=== PATIENT | female | born 1990 | race Caucasian/White ===

== ENCOUNTER → 2018-02-05 | Outpatient (CLI) | payer BC ==
[2018-02-05 11:00] LABS: BASO % 0.4 % (0.0-1.0); EOS # 0.1 10^3/uL (0.0-0.50); EOS % 1.1 % (0.0-3.0); HEMATOCRIT 36.3 % (36.0-47.0); HEMOGLOBIN 12.4 g/dl (12.0-15.5); IMMATURE GRANULOCYTE % 0.7 % (0-3.0); LYMPH # 1.7 10^3/uL (1.5-6.5); LYMPH % 17.8 % (24.0-44.0); MEAN CORPUSCULAR HEMOGLOBIN 30.2 pg (27.0-33.0); MEAN CORPUSCULAR HGB CONC 34.2 g/dl (32.0-36.5); MEAN CORPUSCULAR VOLUME 88.3 fl (80.0-96.0); MONO # 0.6 10^3/uL (0.0-0.8); MONO % 6.5 % (0.0-5.0); NEUTROPHILS # 7.2 10^3/uL (1.8-7.7); NEUTROPHILS % 73.5 % (36.0-66.0); PLATELET COUNT, AUTOMATED 204 10^3/uL (150-450); RED BLOOD COUNT 4.11 10^6/uL (4.00-5.40); RED CELL DISTRIBUTION WIDTH 12.7 % (11.5-14.5); WHITE BLOOD COUNT 9.8 10^3/uL (4.0-10.0)
[2018-02-05 15:08] LABS: CHLAMYDIA DNA AMPLIFICATION NEGATIVE (NEGATIVE); GC DNA AMPLIFICATION NEGATIVE (NEGATIVE)
[2018-02-06 09:46] LABS: RUBELLA IgG QUALITATIVE IMMUNE (IMMUNE)
[2018-02-06 09:55] LABS: HBsAg Prenatal NEGATIVE (NEGATIVE)
[2018-02-06 10:14] LABS: HEPATITIS C VIRUS ABY INDEX 0.1 INDEX (<0.8)
[2018-02-06 10:15] LABS: HIV 1&2 SCREEN CENTAUR NEGATIVE (NEGATIVE)
== END ==
LOC: M LAB 10:19
DX: Z34.81 Encounter for supervision of other normal pregnancy, first trimester (principal); Z36.89 Encounter for other specified antenatal screening; Z3A.12 12 weeks gestation of pregnancy
CPT/HCPCS: 86762

== ENCOUNTER → 2018-02-12 | Outpatient (CLI) | payer BC | LOC: M SMT 12:05 | DX: Z34.81 Encounter for supervision of other normal pregnancy, first trimester (principal); Z36.89 Encounter for other specified antenatal screening | CPT/HCPCS: 36415 ==

== ENCOUNTER → 2018-02-12 | Outpatient (CLI) | payer BC | LOC: M RAD 07:28 | DX: Z34.81 Encounter for supervision of other normal pregnancy, first trimester (principal); Z36.89 Encounter for other specified antenatal screening; Z3A.13 13 weeks gestation of pregnancy | CPT/HCPCS: 76801 ==

== ENCOUNTER → 2018-04-02 | Outpatient (CLI) | payer BC | LOC: M RAD 07:23 | DX: O32.1XX0 Maternal care for breech presentation, not applicable or unspecified (principal); Z36.89 Encounter for other specified antenatal screening; Z3A.21 21 weeks gestation of pregnancy | CPT/HCPCS: 76811 ==

== ENCOUNTER → 2018-05-07 | Outpatient (CLI) | payer BC ==
[2018-05-07 17:31] LABS: HEMATOCRIT 31.6 % (36.0-47.0); HEMOGLOBIN 10.6 g/dl (12.0-15.5); MEAN CORPUSCULAR HEMOGLOBIN 31.3 pg (27.0-33.0); MEAN CORPUSCULAR HGB CONC 33.5 g/dl (32.0-36.5); MEAN CORPUSCULAR VOLUME 93.2 fl (80.0-96.0); PLATELET COUNT, AUTOMATED 195 10^3/uL (150-450); RED BLOOD COUNT 3.39 10^6/uL (4.00-5.40); RED CELL DISTRIBUTION WIDTH 13.7 % (11.5-14.5)
[2018-05-07 18:10] LABS: GLUCOSE CHALLENGE TEST 1 HOUR 84 MG/DL (LESS THAN 140)
== END ==
LOC: M SMT 13:32
DX: Z34.82 Encounter for supervision of other normal pregnancy, second trimester (principal)
CPT/HCPCS: 82950

== ENCOUNTER → 2018-06-04 | Outpatient (REF) | payer BC | LOC: M LAB REF 13:00 | DX: Z36.89 Encounter for other specified antenatal screening (principal) | CPT/HCPCS: 87086 ==

== ENCOUNTER → 2018-07-16 | Outpatient (REF) | payer BC ==
[~2018-07-16] MED LIST: COLA100C5 PO; IBUP80TA PO; OXYC1TAB23 PO; PERCOCET PO; PRENTAB9 PO
== END ==
LOC: M LAB REF 12:33
PROVIDERS: ATTEND Specialist
DX: Z34.83 Encounter for supervision of other normal pregnancy, third trimester (principal)

== ENCOUNTER 2018-08-16 22:07 | Inpatient (IN) | payer BC ==
[~2018-08-16] VITALS: Ht 160 cm; Wt 71.6 kg
[2018-08-16 23:20] LABS: HEMATOCRIT 36.2 % (36.0-47.0); HEMOGLOBIN 12.5 g/dl (12.0-15.5); MEAN CORPUSCULAR HEMOGLOBIN 31.6 pg (27.0-33.0); MEAN CORPUSCULAR HGB CONC 34.5 g/dl (32.0-36.5); MEAN CORPUSCULAR VOLUME 91.6 fl (80.0-96.0); PLATELET COUNT, AUTOMATED 154 10^3/uL (150-450); RED BLOOD COUNT 3.95 10^6/uL (4.00-5.40); WHITE BLOOD COUNT 13.1 10^3/uL (4.0-10.0)
[2018-08-16] MEDS ORDERED: miSOPROStol 50 MCG 1/2 TAB (S0191) As Ordered ONE (23:27)
[2018-08-16] MEDS: miSOPROStol 50 MCG 1/2 TAB (S0191) SL SCH (23:36)
[2018-08-17] VITALS (67 sets, daily range): BP systolic 94–162; BP diastolic 50–87
[2018-08-17] MEDS: miSOPROStol 50 MCG 1/2 TAB (S0191) SL SCH (04:50)
[2018-08-17] MEDS: FAMOTIDINE 20 MG TAB PO SCH (08:47)
[2018-08-17] MEDS ORDERED: OXYTOCIN DRIP 30 UNITS in APPROPRIATE DILUENT 1 EA IV SCH (09:00)
--- NOTE | 2018-08-17 09:09 | IPNPDOC ---
Obstetrical Progress Note Date of Service Aug 17, 2018 Subjective Patient reports she is feeling her contractions. Objective Vital Signs Date Time Temp Pulse Resp B/P (MAP) Pulse Ox O2 Delivery O2 Flow Rate FiO2 08/17/18 07:04 97.6 66 16 118/65 (82) Assessment Heart Rate (FHR): 130 Variability: Moderate Accelerations: Positive Decelerations: None Heart Rate Tracing: Category I Tocometer Contractions: Yes Frequency: regular, every 1-3 min. Sterile Vaginal Examination Dilation: None Effacement (%): other (thinning) Cervical Consistency: Medium Cervical Position: Anterior Postion/Presentation: Cephalic presentation Assessment and Plan Age: 28 : 1 Term: 0 Pre-term: 0 Abortions: 0 Livin EGA at Admission: 40.0 Status: Reassuring Group B Streptococcus: Positive Anticipate: Vaginal Delivery Additional Comments Will start IV Pitocin per order. ARLEEN EMERY CNM Aug 17, 2018 09:09
[2018-08-17] MEDS ORDERED: FENTANYL 2MCG/ML ROPIVACAINE 0.2% IN 0.9% NACL 100ML IVBAG As Ordered ONE (14:30)
[2018-08-17] MEDS ORDERED: ePHEDrine SULFATE 25 MG/5 ML(5MG/ML) SYRINGE As Ordered ONE (15:57)
[2018-08-17] MEDS ORDERED: NALOXONE INJ 0.4 MG/1 ML VIAL (J2310) IV PRN (16:15)
[2018-08-17] MEDS ORDERED: EPIDURAL COMMENT XX SCH (16:15)
[2018-08-17] MEDS ORDERED: ePHEDrine SULFATE 25 MG/5 ML(5MG/ML) SYRINGE IV PRN (16:15)
[2018-08-17] MEDS ORDERED: FENTANYL/ROPIVACAINE/NACL BAG 100 ML EPIDURAL SCH (16:15)
[2018-08-17] MEDS ORDERED: REFRIGERATOR IV KEYS XX PRN (16:15)
[2018-08-17] MEDS ORDERED: LR 1,000 ML IV ONE (16:15)
[2018-08-17] MEDS ORDERED: ONDANSETRON 4MG/2ML VIAL (J2405) IV PRN (16:15)
[2018-08-17] MEDS ORDERED: diphenhydrAMINE INJ 50MG/ML VIAL (J1200) IV PRN (16:15)
[2018-08-17] MEDS ORDERED: LACTATED RINGER'S 1000 ML IV PRN (16:15)
[2018-08-17] MEDS ORDERED: EPIDURAL/PCA KEYS XX PRN (16:15)
[2018-08-17] MEDS ORDERED: PENICILLIN G POTASSIUM IV 5 MU in D5W MINI-BAG PLUS 100 ML IV STA (16:40)
[2018-08-17] MEDS: PENICILLIN G POTASSIUM IV 2.5 MU in APPROPRIATE DILUENT 1 EA IV SCH (21:00)
[2018-08-18] VITALS (41 sets, daily range): BP systolic 113–164; BP diastolic 55–86
--- NOTE | 2018-08-18 01:15 | IPNPDOC ---
Obstetrical Progress Note Date of Service Aug 17, 2018 Subjective Done at 1630 Patient reports she is comfortable with her epidural. Objective Vital Signs Date Time Temp Pulse Resp B/P (MAP) Pulse Ox O2 Delivery O2 Flow Rate FiO2 08/17/18 18:50 90 101/69 (80) 08/17/18 18:36 18 08/17/18 17:59 98.2 Assessment Heart Rate (FHR): 130 Variability: Moderate Accelerations: Positive Decelerations: None Heart Rate Tracing: Category I Tocometer Contractions: Yes Frequency: regular Sterile Vaginal Examination Dilation: 1cm Effacement (%): 90% Cervical Consistency: Soft Cervical Position: Anterior Postion/Presentation: Cephalic presentation Assessment and Plan Status: Reassuring Group B Streptococcus: Positive Additional Comments Pitocin at 10 mu/min. Pepe bulb inserted with 50 cc of NS. Patient tolerated well. ARLEEN EMERY CNM Aug 18, 2018 01:15
--- NOTE | 2018-08-18 01:37 | IPNPDOC ---
Obstetrical Progress Note Date of Service Aug 18, 2018 Subjective Patient comfortable with her epidural. Objective VS: 135/70; 58 HR Assessment Heart Rate (FHR): 125 Accelerations: Positive Decelerations: None Heart Rate Tracing: Category I Tocometer Contractions: Yes Frequency: regular Sterile Vaginal Examination Dilation: 3 cm Effacement (%): 100% Station: -1 Postion/Presentation: Cephalic presentation Assessment and Plan Status: Reassuring Group B Streptococcus: Positive Anticipate: Vaginal Delivery Additional Comments Pitocin at 12 mu/min. Pepe bulb sitting in vagina and removed. AROM to a moderate amount of clear fluid. ARLEEN EMERY CNM Aug 18, 2018 01:36
[2018-08-18] MEDS: LR 1,000 ML IV SCH ×4 (02:05→16:39)
[2018-08-18] MEDS: PENICILLIN G POTASSIUM IV 2.5 MU in APPROPRIATE DILUENT 1 EA IV SCH ×4 (02:05→15:23)
--- NOTE | 2018-08-18 04:15 | HPE ---
DATE OF ADMISSION: 08/16/2018 HISTORY: 28-year-old, (G) 1, para (P) 0 female at 39-6/7 weeks gestation by 13-week ultrasound, estimated date of confinement (EDC) of 08/17/2018 presents for labor induction. The patient denies contractions or vaginal bleeding. COURSE: The patient initiated care at 10 weeks gestation on 02/05/2018. Her first trimester blood pressure was 106/64. Weight was 123 pounds. course was unremarkable. MEDICAL HISTORY: Cervical dysplasia. SURGICAL HISTORY: Loop electrosurgical excision procedure (LEEP) in 2008. ALLERGIES: PERTUSSIS VACCINE. SOCIAL HISTORY: Patient's partner is involved. She lives in [place]. 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 She denies cigarettes, alcohol, or drug use. FAMILY HISTORY: Noncontributory. PHYSICAL EXAMINATION: Blood pressure 124/74. Weight 161. She is no apparent distress. HEAD/NECK: Exam is normal. LUNGS: Clear. HEART: Regular rate and rhythm. ABDOMEN: Nontender. Gravid. heart sounds category 1. STERILE VAGINAL EXAM: Cervix is closed, 50%, posterior, soft, -2. Contractions: None. EXTREMITIES: Nontender. LABS: Blood type is O positive. Rubella immune. RPR nonreactive. Group B streptococcus (GBS) is positive on 07/16/2018. ASSESSMENT: 28-year-old, G1, P0 female at 39-6/7 weeks gestation by 13-week ultrasound presents for labor induction. PLAN: The patient is admitted on 08/16/2018. Risks of induction were discussed. The patient will receive penicillin for GBS prophylaxis when appropriate.
[2018-08-18] MEDS: FAMOTIDINE 20 MG TAB PO SCH (08:13)
--- NOTE | 2018-08-18 09:19 | NUR ---
Progress Note Pt comfortable with epidural. No heavy VB; minimal bloody show. LOF/clear. Has been undergoing cervical ripening/IOL. AROM (clear) after intracervical balloon was noted to be out around 0100 this AM. Normotensive, normal HR, afebrile SVE: 4-5cm, 80%, 0 station. +bloody show. EFM: currently Cat I (pt has had some brief periods of Cat II FHR tracing overnight/early this AM) IUPC: adequate MVU's, ctx's approx every 3-4min; pit at 4mU/min A/P: Early active phase of labor. Reassuring maternal and status. -Repeat SVE in 2-4 hours or sooner GERI Antonio DO
[2018-08-18] MEDS ORDERED: LIDOCAINE 2% W/EPIN INJ 20ML **PRES FREE As Ordered ONE (13:00)
[2018-08-18] MEDS ORDERED: ONDANSETRON 4MG/2ML VIAL (J2405) As Ordered ONE (13:00)
[2018-08-18] MEDS ORDERED: OXYTOCIN INJ 10 UNITS/ML VIAL (J2590) As Ordered ONE (13:01)
[2018-08-18] MEDS ORDERED: dexameTHASONE 4 MG/ML 1ML VIAL (J1100) As Ordered ONE (13:04)
--- NOTE | 2018-08-18 14:17 | NUR ---
Progress note Pt still comfortable with epidural. Denies feeling any rectovaginal pressure/urge to push VSS, normotensive, afebrile SVE: 5cm/80/0; minimal change EFM: predominantly Cat I; short periods of Cat II w/ mod bryant [place]: ctxs every 3-4min; pit at 10mU/min; adequate MVU's. A/P: Arrested active phase of labor. Reassuring maternal and status. Offered PLTCS. Pt requested allowing 2 more hours for cervical change/progression. -Repeat SVE in 2 hours or sooner PRN. Diana Antonio DO
--- NOTE | 2018-08-18 16:43 | NUR ---
Progress note Pt still comfortable with epidural. Continues to deny feeling any rectovaginal pressure/urge to push VSS, normotensive, afebrile SVE: 5cm/80/0; unchanged EFM: Cat I Section: ctxs every 3-4min; pit at 12mU/min; adequate MVU's. A/P: Arrested active phase of labor. Reassuring maternal and status. Discussed PLTCS recommendation, and she is in agreement. However, plan is to still continue Pitocin and recheck after I'm finished assisting another physician with a section. Diana Antonio DO
[2018-08-18] MEDS ORDERED: ACETAMINOPHEN 500 MG TAB PO PRN (16:45)
--- NOTE | 2018-08-18 18:12 | NUR ---
Progress Note No new complaints. Comfortable. VSS, normotensive, afebrile SVE: unchanged, 5cm/80%/0 EFM: Cat I [place]: ctxs every 3min; pit turned off A/P: Arrest of dilation. Reassuring maternal and status. -Pt agreed / consented to PLTCS -Preparations for the OR being made. Diana Antonio DO FACOG
[2018-08-18] MEDS ORDERED: AZITHROMYCIN INJ 500 MG, VIAL MATE ADAPTER 1 EACH in D5W 250 ML IV ONE (18:15)
[2018-08-18] MEDS ORDERED: BICITRA 30ML SOLN UDC PO ONE (18:15)
[2018-08-18] MEDS ORDERED: METOCLOPRAMIDE INJ 10MG/2ML VIAL (J2765) As Ordered ONE (19:27)
[2018-08-18] MEDS ORDERED: MORPHINE PRES-FREE INJ 10 MG/10 ML VIAL (J2274) As Ordered ONE (19:28)
[2018-08-18] MEDS ORDERED: NALOXONE INJ 0.4 MG/1 ML VIAL (J2310) IV PRN ×2 (19:30)
[2018-08-18] MEDS ORDERED: METOCLOPRAMIDE INJ 10MG/2ML VIAL (J2765) IV PRN (19:30)
[2018-08-18] MEDS ORDERED: diphenhydrAMINE INJ 50MG/ML VIAL (J1200) IV PRN (19:30)
[2018-08-18] MEDS ORDERED: ONDANSETRON 4MG/2ML VIAL (J2405) IV PRN ×3 (19:30→21:00)
[2018-08-18] MEDS ORDERED: NALBUPHINE HCL 10 MG/ML AMP (J2300) IV PRN ×2 (19:30→21:00)
[2018-08-18] MEDS ORDERED: PHENYLephrine HCL 500 MCG/5 ML (100MCG/ML) SYRINGE (J2370) As Ordered ONE (19:36)
[2018-08-18] MEDS ORDERED: MIDAZOLAM INJ 2 MG/2 ML VIAL (J2250) As Ordered ONE (19:50)
[2018-08-18] MEDS ORDERED: PROPOFOL 200 MG/20 ML VIAL As Ordered ONE (20:13)
[2018-08-18] MEDS ORDERED: OXYTOCIN DRIP 30 UNITS in APPROPRIATE DILUENT 1 EA IV SCH (20:22)
[2018-08-18] MEDS ORDERED: OXYTOCIN 30 UNITS IN 0.9% NaCl 500ML IV BAG (J2590) As Ordered ONE (20:29)
[2018-08-18] MEDS ORDERED: MEASLES,MUMPS,RUBELLA VACCINE INJ (MMR-II) (90707) SC SCH (20:30)
[2018-08-18] MEDS ORDERED: RHOGAM 300 MCG (1500 IU) INJ (J2790) IM SCH (20:30)
[2018-08-18] MEDS ORDERED: PERCOCET 5MG/325MG TAB PO PRN ×3 (20:30→21:00)
[2018-08-18] MEDS ORDERED: PROMETHAZINE 25 MG TAB PO PRN (20:30)
--- NOTE | 2018-08-18 20:31 | NUR ---
Operative Note Date of procedure: 08/18/2018 Procedure: Primary low-transverse section Anesthesia: Epidural Preoperative diagnosis: 40+ weeks gestation Arrest of dilation Postoperative diagnosis: Same as preoperative Indication: Arrested dilation Primary surgeon: Bill Antonio D.O., Mare Rosado. Patient Accounts Clerk: Theron Verduzco M.D. (essential role for surgical site exposure and assistance with delivery of the baby) Estimated blood loss: 700 ml IV fluids administered: 1700 ml crystalloid Drains: Pepe catheter. Urine output: 100 ml data: Apgars 8 and 9. Birthweight 3230 g, 7 lbs. 2 oz. Male. Preoperative/prophylactic antibiotics: Ancef 2 g IV (given within 30 minutes prior to surgical start time). Azithromycin 500 mg IV 1 Intraoperative findings: Occiput posterior presentation. Retroverted uterus. Normal uterine contour and normal bilateral adnexa/ovaries Specimen(s): None Procedure: The patient was counseled and consented on the risks, benefits, indications and alternatives of the procedure. Informed consent was obtained and placed in the c rosas. She was taken to the operating room with an IV running. She was placed on the operating table. Epidural anesthesia was administered without any difficulty and found to be adequate. She was placed in the dorsal supine position with a leftward tilt. Sequential compression devices were placed on the lower extremities. A Pepe catheter was placed under sterile conditions. She was sterilely prepped and draped. A surgical timeout was performed per protocol. Epidural anesthesia was again found to be adequate. Using the 10 blade a Pfannenstiel incision was performed. The 10 blade was used to dissect down to the level of the rectus sheath fascia. The rectus sheath fas bill was incised at the midline, and the fascial incision was extended with Finney scissors. Sumeet clamps were used to grasp the superior and inferior aspect of the fascial incision and the rectus muscle bellies were dissected off sharply and bluntly. The midline was identified and the rectus muscle bellies were manually . The peritoneum was identified and clamped with hemostats and elevated. The peritoneum was then incised with Metzenbaum scissors. Entry into the intraperitoneal cavity was achieved. The peritoneal opening was extended with manual stretch . There was good visualization of both the bladder and the lower uterine segment. The bladder retractor was placed. The vesicouterine peritoneum was dissected with Metzenbaum scissors and blunt dissection. Bladder retractor was repositioned. A low transverse uterine incision was made with a new 10 blade. The hysterotomy was extended with manual stretch. The amniotic sac was protruding and then artificially ruptured. Thin/light meconium stained amniotic fluid was noted. The baby's head delivered through the hysterotomy with ease. The remaind er of the body delivered with ease. The cord was doubly clamped and cut and the baby was handed off to awaiting care. See data above. The placenta was manually removed and noted to be fully intact. The uterus was exteriorized. The intrauterine cavity was cleared of all clot and debris with a laparotomy sponge. The hysterotomy was closed with 0 Vicryl in running, locked fashion. A second imbricating closure was performed over the initial layer closure using 0 Vicryl. The hysterotomy was noted to be hemostatic. The posterior cul-de-sac was irrigated and cleared of all clot and debris. The uterus was replaced back into the abdomen. The paracolic gutters were cleared of all clot and debris with damp laparotomy sponges. The hysterotomy is reinspected and noted to be hemostatic. Sponge, needle and instrument counts were correct. The peritoneum was closed with 3-0 Vicryl in running fashion. The rectus muscle bellies were reapproximated with 3-0 Vicryl with a series of interrupted sutures. The rectus muscle bellies were noted to be hemostatic. The fascia was closed with 0 Vicryl in running fashion. Sponge, needle and instrument counts were again correct. The subcutaneous layer was irrigated. Small subcutaneous bleeders were cauterized with Bovie. The subcutaneous layer was reapproximated with 3-0 Vicryl in running fashion. The skin was closed with 3-0 Monocryl in subcuticular fashion. A bandage was placed over the closed incision. The final sponge, instrument and needle count was correct. She tolerated the entire procedure very well. She was transferred to the PACU in good and stable condition. Dr. Bill Antonio D.O., F.A.Spencer.O.G
[2018-08-18] MEDS ORDERED: fentaNYL 100 MCG/2 ML INJECTION (J3010) IV PRN (21:00)
[2018-08-18] MEDS ORDERED: MEPERIDINE INJ 25 MG/ML VIAL (J2175) IV PRN (21:00)
[2018-08-18] MEDS ORDERED: HYDROMORPHONE HCL 0.5 MG/ 0.5 ML SYRINGE (J1170 PER 1) IV PRN (21:00)
[2018-08-18] MEDS: DOCUSATE SODIUM 100 MG CAP PO SCH (22:23)
[2018-08-19] VITALS (7 sets, daily range): BP systolic 96–142; BP diastolic 50–79
[2018-08-19] MEDS: KETOROLAC 30 MG/ML VIAL (J1885) IV SCH ×3 (02:56→14:44)
[2018-08-19] MEDS: LR 1,000 ML IV SCH ×3 (03:37→12:22)
[2018-08-19 06:51] LABS: HEMATOCRIT 31.2 % (36.0-47.0); HEMOGLOBIN 10.5 g/dl (12.0-15.5); MEAN CORPUSCULAR HEMOGLOBIN 31.3 pg (27.0-33.0); MEAN CORPUSCULAR HGB CONC 33.7 g/dl (32.0-36.5); MEAN CORPUSCULAR VOLUME 92.9 fl (80.0-96.0); PLATELET COUNT, AUTOMATED 127 10^3/uL (150-450); RED BLOOD COUNT 3.36 10^6/uL (4.00-5.40); WHITE BLOOD COUNT 22.1 10^3/uL (4.0-10.0)
--- NOTE | 2018-08-19 07:47 | NUR ---
Postoperative Day 1 Status post primary low transverse section, uncomplicated. Subjective Pain is well controlled. Lochia is decreasing and minimal. Voiding spontaneously. Tolerating a regular diet. Ambulating without any assistance. Denies any subjective fever, chills, nausea, vomiting, headache, visual changes, shortness of breath, chest pain. Breast feeding. Objective Vitals: Normotensive, normal heart rate, afebrile, adequate urine output. Heart: regular, rate, and rhythm. no murmurs/gallops/rubs Lungs: clear to auscultation bilaterally, no wheezes/crackles/rales/ronchi Abd: soft, nontender, nondistended, uterine fundus is 2cm below umbilicus and firm Incision: clean, dry, intact Ext: no significant edema, nontender, negative Edison's bilaterally. Preoperative H/H: 12.5/36.2<154 Postoperative H/H: 10.5/31.2<127 Assessment/Plan: Postoperative day 1 status post primary low transverse section. Recovering well. Hemodynamically stable, afebrile, good pain control. -Routine care -Discharge to home tomorrow. -Routine infectious, fever, pain, and bleeding precautions reviewed -Incision/wound care precautions reviewed. Sarah Joyner.O., F.A.C.O.G.
[2018-08-19] MEDS: DOCUSATE SODIUM 100 MG CAP PO SCH ×2 (08:19→20:15)
[2018-08-19] MEDS: PRENATAL VITAMINS CHEWABLE TABLET PO SCH (08:19)
[2018-08-19] MEDS ORDERED: PERCOCET PO (08:47)
[2018-08-19] MEDS ORDERED: COLA100C5 PO (08:48)
[2018-08-19] MEDS ORDERED: IBUP80TA PO (08:48)
[2018-08-19] MEDS: IBUPROFEN 800 MG TAB PO SCH (22:54)
[2018-08-20 02:00] VITALS: BP 130/75
[2018-08-20 06:00] VITALS: BP 111/64
[2018-08-20] MEDS: IBUPROFEN 800 MG TAB PO SCH (06:33)
--- NOTE | 2018-08-20 07:55 | DSES ---
DATE OF ADMISSION: 08/16/2018 DATE OF DISCHARGE: 08/20/2018 DISCHARGE DIAGNOSIS: Primary section postoperative day 2, stable. SURGEON: Dr. Bill Antonio HISTORY: Jania is a 28-year-old, 1, para 1-0-1-1 now who underwent primary section due to arrest of dilatation following an induction of labor at term. Her postoperative course was uncomplicated. She delivered a live male , 7 pounds 2 ounces, 3230 grams. scores 8 and 9. Estimated blood loss (EBL) 700 mL. She has been out of bed for self care, vero care and care. She is tolerating by mouth fluids and a regular diet. She is voiding without difficulty and passing flatus. Her pain has been well controlled with by mouth pain medications. Breast feeding is established and she does desire discharge today. OBJECTIVE: Temperature 98.2, pulse 63, respirations 20, blood pressure 111/64. She is alert and oriented times three. Appears comfortable. Preoperative CBC on 08/16/2018 - hemoglobin 12.5, hematocrit 36.2, platelets 154. Postoperative CBC 08/19/2018 - hemoglobin 10.5, hematocrit 31.2, platelets 127. Her breasts are soft, nontender, nipples are intact, there are no cracks and no bleeding. Abdomen fundus firm at U. The incision dressing is applied and there is no drainage noted around the Optifoam dressing. Perineum is intact. Lochia rubra scant. No edema and no hematoma noted. PLAN: Discharge the patient home today. She is to follow up at [facility] for a 2 week incision check and an 8 week visit. I did review discharge instructions that include breast care, incision care, vero care, activity and lifting restrictions, danger signs to report to her provider and access to care. Prescriptions have been ePrescribed by Dr. Bill Antonio to her pharmacy for ibuprofen and Percocet as directed. The patient has had all of her questions answered and does desire discharge.
[2018-08-20] MEDS ORDERED: ACETAMINOPHEN 500 MG TAB PO PRN (09:00)
[2018-08-20] MEDS: PRENATAL VITAMINS CHEWABLE TABLET PO SCH (09:25)
[2018-08-20] MEDS: DOCUSATE SODIUM 100 MG CAP PO SCH (09:25)
[2018-08-20 10:00] VITALS: BP 107/62
[2018-08-20] MEDS ORDERED: OXYC1TAB23 PO (10:51)
[2018-08-20] MEDS ORDERED: PRENTAB9 PO (10:51)
== END 2018-08-20 14:50 | disposition home or self-care (01) | DRG 540 ==
LOC: M LDI 22:07 → M OBS 08-18 21:56
PROVIDERS: ADMIT Specialist; ATTEND Obstetrics & Gynecology
PROC: 3E0P7GC Introduction of Other Therapeutic Substance into Female Reproductive, Via Natural or Artificial Opening (ICD-10-PCS; 2018-08-16)
PROC: 10907ZC Drainage of Amniotic Fluid, Therapeutic from Products of Conception, Via Natural or Artificial Opening (ICD-10-PCS; 2018-08-18)
PROC: 10D00Z1 Extraction of Products of Conception, Low, Open Approach (ICD-10-PCS; principal; 2018-08-18 19:02)
DX: O99.824 Streptococcus B carrier state complicating childbirth (principal); Z3A.39 39 weeks gestation of pregnancy; O62.0 Primary inadequate contractions; O64.0XX0 Obstructed labor due to incomplete rotation of fetal head, not applicable or unspecified; Z37.0 Single live birth

== ENCOUNTER → 2019-03-25 | Outpatient (REF) | payer BC ==
[2019-03-31 08:20] LABS: HPV HYBRID CAPTURE II Negative (Negative)
== END ==
LOC: M LAB REF 14:02
PROVIDERS: ATTEND Obstetrics & Gynecology
DX: Z12.4 Encounter for screening for malignant neoplasm of cervix (principal)
CPT/HCPCS: 87624; G0123

== ENCOUNTER → 2020-02-17 | Outpatient (REF) | payer BC | LOC: M LAB REF 10:18 | PROVIDERS: ATTEND Physician Assistant | DX: D23.5 Other benign neoplasm of skin of trunk (principal) ==

== ENCOUNTER → 2020-10-12 | Outpatient (REF) | payer BC ==
[2020-10-12 10:46] LABS: HEMATOCRIT 39.4 % (36.0-47.0); HEMOGLOBIN 13.4 g/dl (12.0-15.5); MEAN CORPUSCULAR HEMOGLOBIN 30.7 pg (27.0-33.0); MEAN CORPUSCULAR VOLUME 90.2 fl (80.0-96.0); PLATELET COUNT, AUTOMATED 222 10^3/uL (150-450); RED BLOOD COUNT 4.37 10^6/uL (4.00-5.40)
[2020-10-12 12:48] LABS: CHLAMYDIA DNA AMPLIFICATION NEGATIVE (NEGATIVE); GC DNA AMPLIFICATION NEGATIVE (NEGATIVE)
[2020-10-13 09:19] LABS: HIV 1&2 SCREEN CENTAUR NEGATIVE (NEGATIVE)
== END ==
LOC: M PLALAB 09:05
PROVIDERS: ATTEND Advanced Practice Midwife
DX: Z34.81 Encounter for supervision of other normal pregnancy, first trimester (principal); Z36.89 Encounter for other specified antenatal screening; Z3A.09 9 weeks gestation of pregnancy

== ENCOUNTER → 2020-11-30 | Outpatient (REF) | payer BC | LOC: M SFHCWAGY 18:29 | PROVIDERS: ATTEND Obstetrics & Gynecology | DX: R30.0 Dysuria (principal) ==

== ENCOUNTER → 2020-12-14 | Outpatient (CLI) | payer BC ==
--- NOTE | 2020-12-14 10:49 | REP ---
INDICATION: ANATOMY. COMPARISON: None. TECHNIQUE: Transabdominal scanning FINDINGS: Multiple ultrasonographic images of the gravid uterus shows a single living intrauterine gestation in the transverse presentation. Doppler interrogation of the heart shows a heart rate of 136 beats per minute. The placenta is anterior and not low-lying. The cervix measures 4.2 cm length and is closed. The subjective amniotic fluid volume is within normal limits. BPD: 4.4 cm 19 weeks 3 days HC: 17.5 cm 20 weeks 0 days AC: 15.0 cm 20 weeks 2 days FL: 3.3 cm 20 weeks 1 day The estimated weight is 335 g which is at the 78 percentile for a 19 week 4 day gestational age. anatomical structures seen to be unremarkable are as follows thalami, cavum septum pellucidum, cerebellum, cisterna magna, cerebral ventricles, spine, kidneys, stomach, urinary bladder, four-chamber heart, right and left ventricular outflow tracts, upper lip, cord insertion, three-vessel umbilical cord, and extremities IMPRESSION: Single living intrauterine gestation as described above with an estimated gestational age of 20 weeks 0 days via composite criteria and an estimated date of delivery of 05/03/2021 by today's exam. No anomalies were detected. <Electronically signed by Brayden Krueger > 12/14/20 [id number]
== END ==
LOC: M WHC 08:52
PROVIDERS: ATTEND Specialist
DX: Z34.82 Encounter for supervision of other normal pregnancy, second trimester (principal); Z36.89 Encounter for other specified antenatal screening; Z3A.20 20 weeks gestation of pregnancy

== ENCOUNTER → 2021-04-12 | Outpatient (REF) | payer BC | LOC: M SFHCWAGY 13:07 | PROVIDERS: ATTEND Advanced Practice Midwife | DX: Z36.85 Encounter for antenatal screening for Streptococcus B (principal); Z3A.36 36 weeks gestation of pregnancy ==

== ENCOUNTER → 2021-04-28 | Outpatient (CLI) | payer BC ==
[~2021-04-28] MED LIST changes: +TUMS500C PO
== END ==
LOC: M LABSMTC 10:06
PROVIDERS: ATTEND Anesthesiology
DX: Z01.812 Encounter for preprocedural laboratory examination (principal); Z20.822 Contact with and (suspected) exposure to COVID-19

== ENCOUNTER 2021-04-30 04:54 | Inpatient (IN) | payer BC ==
[~2021-04-30] VITALS: Ht 160 cm; Wt 75.7 kg
[2021-04-30] VITALS (9 sets, daily range): BP systolic 95–136; BP diastolic 48–80
[~2021-04-30 04:54] MED LIST changes: -TUMS500C PO
--- OUTSIDE RECORDS SUMMARY | 2021-04-30 04:58 | CCD ---
Author Author [facility] Organization [facility] Address Unknown Phone Unavailable Care Team Providers Care Supervisor [place] Name Role Phone Bill Antonio Unavailable PROBLEMS Type Condition ICD9-CM Code [id number] Code Onset Dates Condition S tatus W/U Status Risk SNOMED Code Notes Problem Depression F32.9 Active confirmed 97311784 Problem Supervision of other normal Z34.80 Ac tive confirm [id number] ALLERGIES Allergen (clinical drug ingredient) Drug/Non Drug Allergy do cumented on EMR Reaction Allergy Type Onset Date Status PCN hives Non Drug Allergy Active ENCOUNTERS from 1989 to 2021-03-05 Encounter Location Date Provider Diagnosis [facility] [address] [place] [address] [place] [address] Feb, Bill Antonio IMMUNIZATIONS No Information SOCIAL HISTORY Sex Assigned At : Social History Observation Description Sex Assigned At Unknown Education: Question Answer Notes Level of Education: Doctorate Alcohol Screening: Question Answer Notes Did you have a drink containing alcohol in the past year? No Points 0 Interpretation Negative REASON FOR REFERRAL No Information VITAL SIGNS No information MEDICATIONS Medication SIG (Take, Route, Frequency, Duration) Notes Start Da te End Date Status Zoloft 50 MG 1 tablet Orally Once a day for 90 day(s) 20 M 2019 Not-Taking [place] 3-0.02 MG 1 tablet Orally Once a day Mar, Not-Taking 28-0.8 MG 1 tablet Orally Once a day Active PROCEDURES No Information RESULTS No Results REASON FOR VISIT [facility] APPT MEDICAL (GENERAL) HISTORY Type Description Date Surgical History LEEP Hospitalization History childbirth Goals Section No Information Health Concerns No Information MEDICAL EQUIPMENT No Information MENTAL STATUS No Information FUNCTIONAL STATUS No Information ASSESSMENTS No Information PLAN OF TREATMENT Next Appt Details Provider Name:Arielle Chu, 2021-03-15 09:40:00 AM, [address] [facility], , [place], [address], Insurance Providers Payer Name Payer Address Payer Phone Insured Name Patient Relati onship to Insured Coverage Start Date Coverage End Date [facility] [phone] [facility] [employer] [address] JOSÉ MIGUEL LARSEN self
--- OUTSIDE RECORDS SUMMARY | 2021-04-30 04:58 | CCD ---
Author Author [facility] Organization [facility] Address Unknown Phone Unavailable Care Team Providers Care Principal Technical Specialist Name Role Phone Arielle Chu Unavailable PROBLEMS Type Condition ICD9-CM Code [id number] Code Onset Dates Condition S tatus W/U Status Risk SNOMED Code Notes Problem Depression F32.9 Active confirmed [id number] Problem Supervision of other normal Z34.80 Ac tive confirm [id number] ALLERGIES Allergen (clinical drug ingredient) Drug/Non Drug Allergy do cumented on EMR Reaction Allergy Type Onset Date Status PCN hives Non Drug Allergy Active ENCOUNTERS from 1989 to 2021-04-11 Encounter Location Date Provider Diagnosis [facility] [address] [place] [address] [place] [address] Mar, Arielle Chu Maternal care due to low transverse uterine scar from previous delivery O34.211 and 34 weeks gestation of Z3A.34 IMMUNIZATIONS No Information SOCIAL HISTORY Sex Assigned At : Social History Observation Description Sex Assigned At Unknown Education: Question Answer Notes Level of Education: Doctorate Alcohol Screening: Question Answer Notes Did you have a drink containing alcohol in the past year? No Points 0 Interpretation Negative REASON FOR REFERRAL No Information VITAL SIGNS Weight 156.2 lbs Mar, Weight-kg 70.85 kg Mar, Height 63 in Mar, BMI 27.67 kg/m2 Mar, Blood pressure systolic 104 mm Hg Mar, Blood pressure diastolic 58 mm Hg Mar, MEDICATIONS Medication SIG (Take, Route, Frequency, Duration) Notes Start Da te End Date Status Zoloft 50 MG 1 tablet Orally Once a day for 90 day(s) 20 M 2019 Not-Taking 28-0.8 MG 1 tablet Orally Once a day Active CHESTER 3-0.02 MG 1 tablet Orally Once a day Mar, Not-Taking PROCEDURES No Information RESULTS No Results REASON FOR VISIT 4 wk pn MEDICAL (GENERAL) HISTORY Type Description Date Surgical History LEEP Hospitalization History childbirth Goals Section No Information Health Concerns No Information MEDICAL EQUIPMENT No Information MENTAL STATUS No Information FUNCTIONAL STATUS No Information ASSESSMENTS Encounter Date Diagnosis Assessment Notes Treatment Notes Treatm ent Clinical Notes Mar, Maternal care due to low tra nsverse uterine scar from previous delivery (ICD-10 - O34.211) Mar, 34 weeks gestation of (ICD-10 - Z3A.34 ) PLAN OF TREATMENT Next Appt Details 2 Weeks Reason:PN Provider Name:Jasmin Somers, 2021-04-12 03:40:00 PM, [address] [facility], , [place], [address], Follow Up:2 WeeksPN Insurance Providers Payer Name Payer Address Payer Phone Insured Name Patient Relati onship to Insured Coverage Start Date Coverage End Date BCBS [place] MARCELA PPO [phone] [facility] [employer] [place] [address] JOSÉ MIGUEL LARSEN
--- OUTSIDE RECORDS SUMMARY | 2021-04-30 04:58 | CCD ---
Author Author [facility] Organization [facility] Address Unknown Phone Unavailable Care Team Providers Care Curing Press Maintainer Name Role Phone RUPERT, M ARLEEN CNM Unavailable Unavailable RUPERT, M ARLEEN CNM Unavailable Unavailable RUPERT, M ARLEEN CNM Unavailable Unavailable RUPERT, M ARLEEN CNM Unavailable Unavailable RUPERT, M ARLEEN CNM Unavailable Unavailable RUPERT, M ARLEEN CNM Unavailable Unavailable RUPERT, M ARLEEN CNM Unavailable Unavailable RUPERT, M ARLEEN CNM Unavailable Unavailable RUPERT, M ARLEEN CNM Unavailable Unavailable RUPERT, M ARLEEN CNM Unavailable Unavailable RUPERT, M ARLEEN CNM Unavailable Unavailable RUPERT, M ARLEEN CNM Unavailable Unavailable RUPERT, M ARLEEN CNM Unavailable Unavailable RUPERT, M ARLEEN CNM Unavailable Unavailable RUPERT, M ARLEEN CNM Unavailable Unavailable RUPERT, M ARLEEN CNM Unavailable Unavailable RUPERT, M ARLEEN CNM Unavailable Unavailable RUPERT, M ARLEEN CNM Unavailable Unavailable RUPERT, M ARLEEN CNM Unavailable Unavailable RUPERT, M ARLEEN CNM Unavailable Unavailable Matilde Crowell MD Unavailable Unavailable Matilde Crowell MD Unavailable Unavailable Matilde Crowell MD Unavailable Unavailable Matilde Crowell MD Unavailable Unavailable Matilde Crowell MD Unavailable Unavailable Matilde Crowell MD Unavailable Unavailable Matilde Crowell MD Unavailable Unavailable Matilde Crowell MD Unavailable Unavailable Matilde Crowell MD Unavailable Unavailable Matilde Crowell MD Unavailable Unavailable Matilde Crowell MD Unavailable Unavailable Matilde Crowell MD Unavailable Unavailable Matilde Crowell MD Unavailable Unavailable Matilde Crowell MD Unavailable Unavailable Matilde Crowell MD Unavailable Unavailable Matilde Crowell MD Unavailable Unavailable Matilde Crowell MD Unavailable Unavailable Matilde Crowell MD Unavailable Unavailable Matilde Crowell MD Unavailable Unavailable Matilde Crowell MD Unavailable Unavailable Matilde Crowell MD Unavailable Unavailable Matilde Crowell MD Unavailable Unavailable Matilde Crowell MD Unavailable Unavailable Matilde Crowell MD Unavailable Unavailable Matilde Crowell MD Unavailable Unavailable Matilde Crowell MD Unavailable Unavailable Matilde Crowell MD Unavailable Unavailable Matilde Crowell MD Unavailable Unavailable Matilde Crowell MD Unavailable Unavailable Matilde Crowell MD Unavailable Unavailable Matilde Crowell MD Unavailable Unavailable Matilde Crowell MD Unavailable Unavailable Matilde Crowell MD Unavailable Unavailable Matilde Crowell MD Unavailable Unavailable Matilde Crowell MD Unavailable Unavailable Matilde Crowell MD Unavailable Unavailable Matilde Crowell MD Unavailable Unavailable Matilde Crowell MD Unavailable Unavailable Matilde Crowell MD Unavailable Unavailable Matilde Crowell MD Unavailable Unavailable Matilde Crowell MD Unavailable Unavailable Matilde Crowell MD Unavailable Unavailable Matilde Crowell MD Unavailable Unavailable Matilde Crowell MD Unavailable Unavailable Matilde Crowell MD Unavailable Unavailable Suma Carias MD Unavailable Unavailable Suma Carias MD Unavailable Unavailable Suma Carias MD Unavailable Unavailable Suma Carias MD Unavailable Unavailable Suma Carias MD Unavailable Unavailable Suma Carias MD Unavailable Unavailable Suma Carias MD Unavailable Unavailable Suma Carias MD Unavailable Unavailable Suma Carias MD Unavailable Unavailable Suma Carias MD Unavailable Unavailable Suma Carias MD Unavailable Unavailable Suma Carias MD Unavailable Unavailable LyndaSuma hill MD Unavailable Unavailable LyndakerSuma MD Unavailable Unavailable LyndaSuma hill MD Unavailable Unavailable LyndakerSuma MD Unavailable Unavailable LyndakerSuma MD Unavailable Unavailable LyndakerSuma MD Unavailable Unavailable LyndaSuma hill MD Unavailable Unavailable LyndaSuma hill MD Unavailable Unavailable LyndaSuma hill MD Unavailable Unavailable LyndaSuma hill MD Unavailable Unavailable LyndakerSuma MD Unavailable Unavailable LyndakerSuma MD Unavailable Unavailable LyndaSuma hill MD Unavailable Unavailable LyndaSuma hill MD Unavailable Unavailable LyndaSuma hill MD Unavailable Unavailable LyndaSuma hill MD Unavailable Unavailable LyndaSuma hill MD Unavailable Unavailable LyndaSuma hill MD Unavailable Unavailable LyndaSuma hill MD Unavailable Unavailable LyndaSuma hill MD Unavailable Unavailable LyndaSuma hill MD Unavailable Unavailable LyndaSuma hill MD Unavailable Unavailable LyndaSuma hill MD Unavailable Unavailable LyndaSuma hill MD Unavailable Unavailable LyndaSuma hill MD Unavailable Unavailable LyndaSuma hill MD Unavailable Unavailable LyndaSuma hill MD Unavailable Unavailable LyndaSuma hill MD Unavailable Unavailable LyndaSuma hill MD Unavailable Unavailable LyndaSuma hill MD Unavailable Unavailable LyndaSuma hill MD Unavailable Unavailable LyndaSuma hill MD Unavailable Unavailable LyndaSuma hill MD Unavailable Unavailable LynSuma cheatham MD Unavailable Unavailable LynSuma cheatham MD Unavailable Unavailable LyndaSuma hill MD Unavailable Unavailable LyndaSuma hill MD Unavailable Unavailable LyndaSuma hill MD Unavailable Unavailable LyndaSuma hill MD Unavailable Unavailable LynSuma cheatham MD Unavailable Unavailable LynSuma cheatham MD Unavailable Unavailable LyndaSuma hill MD Unavailable Unavailable LyndaSuma hill MD Unavailable Unavailable LyndaSuma hill MD Unavailable Unavailable LyndaSuma hill MD Unavailable Unavailable LyndaSuma hill MD Unavailable Unavailable LyndaSuma hill MD Unavailable Unavailable LyndaSuma hill MD Unavailable Unavailable LyndaSuma hill MD Unavailable Unavailable LyndaSuma hill MD Unavailable Unavailable Lyndasergio L Jorge MD Unavailable Unavailable LynSuma cheatham MD Unavailable Unavailable LynSuma cheatham MD Unavailable Unavailable LynSuma cheatham MD Unavailable Unavailable LynSuma hceatham MD Unavailable Unavailable LynSuma cheatham MD Unavailable Unavailable LynSuma cheatham MD Unavailable Unavailable Suma Carias MD Unavailable Unavailable LynSuma cheatham MD Unavailable Unavailable LynuSma cheatham MD Unavailable Unavailable LynSuma cheatham MD Unavailable Unavailable LynSuma cheatham MD Unavailable Unavailable LynSuma cheatham MD Unavailable Unavailable LynSuma cheatham MD Unavailable Unavailable Suma Carias MD Unavailable Unavailable Suma Carias MD Unavailable Unavailable Suma Carias MD Unavailable Unavailable Suma Carias MD Unavailable Unavailable Suma Carias MD Unavailable Unavailable Suma Carias MD Unavailable Unavailable Suma Carias MD Unavailable Unavailable Suma Carias MD Unavailable Unavailable Suma Carias MD Unavailable Unavailable Suma Carias MD Unavailable Unavailable Suma Carias MD Unavailable Unavailable Suma Carias MD Unavailable Unavailable Suma Carias MD Unavailable Unavailable Suma Carias MD Unavailable Unavailable Suma Carias MD Unavailable Unavailable Suma Carias MD Unavailable Unavailable Suma Carias MD Unavailable Unavailable Suma Carias MD Unavailable Unavailable Suma Carias MD Unavailable Unavailable Suma Carias MD Unavailable Unavailable Suma Carias MD Unavailable Unavailable Suma Carias MD Unavailable Unavailable Fam, Eloise PA Unavailable Unavailable Fam, Eloise PA Unavailable Unavailable Fam, Eloise PA Unavailable Unavailable Fam, Eloise PA Unavailable Unavailable Fam, Eloise PA Unavailable Unavailable Fam, Eloise PA Unavailable Unavailable Fam, Eloise PA Unavailable Unavailable Fam, Eloise PA Unavailable Unavailable Fam, Eloise PA Unavailable Unavailable Fam, Eloise PA Unavailable Unavailable Fam, Eloise PA Unavailable Unavailable Fam, Eloise PA Unavailable Unavailable Fam, Eloise PA Unavailable Unavailable Fam, Eloise PA Unavailable Unavailable Fam, Eloise PA Unavailable Unavailable Fam, Eloise PA Unavailable Unavailable Fam, Eloise PA Unavailable Unavailable Fam, Eloise PA Unavailable Unavailable Fam, Eloise PA Unavailable Unavailable Fam, Eloise PA Unavailable Unavailable Fam, Eloise PA Unavailable Unavailable Fam, Eloise PA Unavailable Unavailable Fam, Eloise PA Unavailable Unavailable Fam, Eloise PA Unavailable Unavailable Fam, Eloise PA Unavailable Unavailable Fam, Eloise PA Unavailable Unavailable Fam, Eloise PA Unavailable Unavailable Fam, Eloise PA Unavailable Unavailable Fam, Eloise PA Unavailable Unavailable Fam, Eloise PA Unavailable Unavailable Fam, Eloise PA Unavailable Unavailable Fam, Eloise PA Unavailable Unavailable Fam, Eloise PA Unavailable Unavailable Fam, Eloise PA Unavailable Unavailable Fam, Eloise PA Unavailable Unavailable Fam, Eloise PA Unavailable Unavailable Fam, Eloise PA Unavailable Unavailable Fam, Eloise PA Unavailable Unavailable Fam, Eloise PA Unavailable Unavailable Fam, Eloise PA Unavailable Unavailable Fam, Eloise PA Unavailable Unavailable Vallandigham, D Jasmin CNM Unavailable Unavailabl e Vallandigham, D Jasmin CNM Unavailable Unavailabl e Vallandigham, D Jasmin CNM Unavailable Unavailabl e Vallandigham, D Jasmin CNM Unavailable Unavailabl e Vallandigham, D Jasmin CNM Unavailable Unavailabl e Vallandigham, D Jasmin CNM Unavailable Unavailabl e Vallandigham, D Jasmin CNM Unavailable Unavailabl e Vallandigham, D Jasmin CNM Unavailable Unavailabl e Vallandigham, D Jasmin CNM Unavailable Unavailabl e Vallandigham, D Jasmin CNM Unavailable Unavailabl e Vallandigham, D Jasmin CNM Unavailable Unavailabl e Vallandigham, D Jasmin CNM Unavailable Unavailabl e Vallandigham, D Jasmin CNM Unavailable Unavailabl e Vallandigham, D Jasmin CNM Unavailable Unavailabl e Vallandigham, D Jasmin CNM Unavailable Unavailabl e Vallandigham, D Jasmin CNM Unavailable Unavailabl e Vallandigham, D Jasmin CNM Unavailable Unavailabl e Vallandigham, D Jasmin CNM Unavailable Unavailabl e Vallandigham, D Jasmin CNM Unavailable Unavailabl e Vallandigham, D Jasmin CNM Unavailable Unavailabl e Vallandigham, D Jasmin CNM Unavailable Unavailabl e Vallandigham, D Jasmin CNM Unavailable Unavailabl e Vallandigham, D Jasmin CNM Unavailable Unavailabl e Vallandigham, D Jasmin CNM Unavailable Unavailabl e Vallandigham, D Jasmin CNM Unavailable Unavailabl e Vallandigham, D Jasmin CNM Unavailable Unavailabl e Vallandigham, D Jasmin CNM Unavailable Unavailabl e Vallandigham, D Jasmin CNM Unavailable Unavailabl e Re-disclosure Warning The records that you are about to access may contain information from federally-assisted alcohol or drug abuse programs. If such information is present, then the following federally mandated warning applies: This information has been disclosed to you from records protected by federal confidentiality rules (42 CFR part 2). The federal rules prohibit you from making any further disclosure of this information unless further disclosure is expressly permitted by the written consent of the person to whom it pertains or as otherwise permitted by 42 CFR part 2. A general authorization for the release of medical or other information is NOT sufficient for this purpose. The Federal rules restrict any use of the information to criminally investigate or prosecute any alcohol or drug abuse patient.The records that you are about to access may contain highly sensitive health information, the redisclosure of which is protected by Article 27-F of the [facility] Public Health law. If you continue you may have access to information: Regarding HIV / AIDS; Provided by facilities licensed or operated by the [facility] Office of Mental Health; or Provided by the [facility] Office for People With Developmental Disabilities. If such information is present, then the following [facility] mandated warning applies: This information has been disclosed to you from confidential records which are protected by state law. State law prohibits you from making any further disclosure of this information without the specific written consent of the person to whom it pertains, or as otherwise permitted by law. Any unauthorized further disclosure in violation of state law may result in a fine or correction sentence or both. A general authorization for the release of medical or other information is NOT sufficient authorization for further disc losure. Encounters Encounter Providers Location Date Indications Data Source(s ) Unknown [address] [facility] [address] 04/27/2021 12:00:00 AM EDT eCW1 ([facility]) Outpatient Attender: Jasmin Ailyngerber KALEY /01/2021 02:24:00 PM EDT [facility] GROWTH Unknown [address] [facility] [address] 04/12/2021 12:00:00 AM EDT eCW1 ([facility]) (WC ESTOB) [facility] [address] [place] [address] 04/12/2021 12:00:00 AM EDT eCW1 ([facility]) (WC ESTOB) [facility] [address] [place] [address] 03/29/2021 12:00:00 AM EDT eCW1 ([facility]) Outpatient<td ID="encounterTypeDescripti onID0">nursing visit</td><td>Jorge Carias MD</td><td>[facility], [facility]</td><td>03/21/2021</td><td>12:10PM</td><td>12:10PM</td><td></td> Attender: Jorge Carias MD [facility], [facility] 03/21/2021 12:10:00 P M EDT - 03/21/2021 12:10:00 PM EDT [facility] ([facility]) <td ID="encounterTypeDescriptionID1">pieter sing visit</td><td>Jorge Carias MD</td><td>[facility], [facility]</td><td>03/16/2021</td><td>3:55PM</td><td>3:59PM</td><td><content ID="encounterDiagnosisID1-0">Assessment of Tuberculosis Ppd Induration ___(mm)</content></td>Outpatient Attender: Jorge Carias MD [facility], P 03/16/2021 03:55:00 PM EDT - 03/16/2021 03:59:11 PM ED T Assessment of Tuberculosis Ppd Induration ___(mm)Assessment of Tuberculosis Ppd Induration ___(mm) [facility] ([facility]) Assessment of Tuberculosis Ppd Induratio n ___(mm) Assessment of Tuberculosis Ppd Induratio n ___(mm) Outpatient<td ID="encounterTypeDescripti onID2">nursing visit</td><td>Eloise Fam [facility]</td><td>[facility], [facility]</td><td>03/14/2021</td><td>4:49PM</td><td>4:49PM</td><td></td> Attender: Eloise TERRELL [facility] 03/14/2021 04:49:00 P M EDT - 03/14/2021 04:49:00 PM EDT [facility] ([facility]) Unknown [address] [facility] [place] [address] 03/05/2021 12:00:00 AM EDT eCW1 ([facility]) Outpatient Attender: ARLEEN EMERY CNM 02/15/2021 10:05:00 AM EDT [id number] [facility] [id number] ( ESTOB) [address] [facility] [address] [place] [address] 02/01/2021 12:00:00 AM EDT eCW1 ([facility]) ( ESTOB) [facility] [address] [place] [address] 12/28/2020 12:00:00 AM EDT eCW1 ([facility]) Unknown [address] [facility] [address] 12/14/2020 12:00:00 AM EDT eCW1 ([facility]) Unknown [address] [facility] [place] [address] 12/13/2020 12:00:00 AM EDT eCW1 ([facility]) (WC ESTOB) enter Est OB [address] [place] [address] 11/02/2020 12:00:00 AM EDT eCW1 ([facility]) ( ESTOB) [facility] Est OB [address] [place] [address] 10/05/2020 12:00:00 AM EDT eCW1 ([facility]) Outpatient<td ID="encounterTypeDescripti onID3">[Patient Encounter]</td><td>Yarelis Crowell MD</td><td></td><td>07/16/2020</td><td>04/27/2020 9:32AM</td><td>04/27/2020 11:59PM</td><td></td> Attender: Yarelis Crowell MD 04/27/2020 09:32:00 AM EST - 04/27/2020 11:59:[address] [facility] ([facility]) <td ID="encounterTypeDescriptionID4">Flu Shot Adult</td><td>Jorge Carias MD</td><td>[facility], [facility]</td><td>04/27/2020</td><td>7:46AM</td><td>7:56AM</td><td></td>Outpatient Attender: Jorge Carias MD [facility], P 04/27/2020 07:46:00 AM EST - 04/27/2020 07:56:[address] [facility] ([facility]) Immunizations Vaccine Date Status Description Data Source(s) COVID-19 VACCINE Moderna 04/12/2021 12:00:00 AM EDT completed [place] Vaccine Series Complete: YESThis Data wa s Submitted to [facility] Via [employer]. IIV3. This is one of two codes replacing CVX 15, which is being retired. 03/21/2021 12:20:00 PM EDT completed <td ID="Aorrbplsxwowd-Zyiqtlvwfwx-FE6">Influenza, seasonal, injectable</td><td ID="ImmunizationDose-3">4</td><td>03/21/2021</td><td ID="Fizguiczactfy-DzfuyGtwj-UV1">Left Deltoid</td><td></td><td ID="Sycylrgfrjkko-Xrfgrp-JL6">Complete (Administered)</td><td>[facility]</td><td ID="Ybytaskwgbtzk-Jkjuu-Rrqb-Comment-ID3"></td> [facility] ([facility]) COVID-19 VACCINE Moderna 07/20/2020 12:00:00 AM EST completed [place] Vaccine Series Complete: YESThis Data wa s Submitted to [facility] Via [employer]. COVID-19 VACCINE Moderna 06/22/2020 12:00:00 AM EST completed [place] Vaccine Series Complete: NOThis Data was Submitted to [facility] Via [employer]. IIV3. This is one of two codes replacing CVX 15, which is being retired. 04/27/2020 08:42:00 AM EST completed <td ID="Fgzqbfxnoebhy-Drpriakgffa-HJ5">Influenza, seasonal, injectable</td><td ID="ImmunizationDose-2">3</td><td>04/27/2020</td><td ID="Leifkebhuvuct-LxjboUxcv-HG7">Left Deltoid</td><td></td><td ID="Jpwryoyvhvdiz-Ypumvx-VC7">Complete (Administered)</td><td>[facility]</td><td ID="Ggqgpvfwhpojm-Cpaqa-Kzff-Comment-ID2"></td> [facility] ([facility]) Medications Medication Brand Name Start Date Product Form Dose Route Admi nistrative Instructions Pharmacy Instructions Status Indications Reaction Description Data Source(s) 20 % 03/02/2020 12:00:00 AM EDT cream 30 APPLY TWO TIMES A DAY TO AFFECTED AREA APPLY TWO TIMES A DAY TO AFFECTED AREA SOLD: 03/09/2020 [facility] Insurance Providers Payer name Policy type / Coverage type Policy ID Covered republican ID Covered republican's relationship to sanon Policy [place] Plan Information [employer] of [facility] Other 0 [id number] Se lf 0 [employer] of [facility] Other 0 [id number] Se lf 0 [facility] Other 0 [id number] Se lf 0 [place] of [place] Other 0 [id number] Se lf 0 [place]/307 [id number] SP [id number] [place] of [place] Other 0 [id number] Se lf 0 [place]/307 [id number] SP [id number] [place] O [id number] P [id number] [place]/307 [id number] SP [id number] [employer] [id number] MO2 [id number] [place] BCBS B [id number] S [id number] [place] [place] 306/[id number] MO2 [id number] [employer] U [id number] Child [id number] Problems, Conditions, and Diagnoses Code Display Name Description Problem Type Effective Dates Data Source(s) Z34.80 care Supervision of other normal P daisym 10/04/2020 12:00:00 AM EDT eCW1 ([facility]) Surgeries/Procedures Procedure Description Date Indications Data Source(s) no charge procedure no charge procedure 03/16/2021 12:00:00 AM EDT [facility] ([facility]) PPD PPD 03/14/2021 12:00:00 AM EDT [facility]) IMADM PRQ ID SUBQ/IM NJXS 1 VACCINE ADMINISTRATION 1-IMMUNIZ ATION(adult) 04/27/2020 12:00:[address] [facility] ([facility]) FLUZONE/ multi-dose ( 6mos -older) FLUZONE/ multi-dose ( 6mo s -older) 04/27/2020 12:00:[address] [facility] ([facility]) Results ID Date Data Source [id number] 04/28/2021 09:20:00 AM EDT [place] Name Value Range Interpretation Code Description Data Amrie rce(s) Supporting Document(s) SARS coronavirus 2 RNA [Presence] in Res piratory specimen by LOLA with probe detection NEGATIVE [place] This lab was ordered by [facility] a nd reported by [facility]. ID Date Data Source [id number] 04/19/2021 03:03:00 PM EDT [facility] [address] [place] [address] [phone] NAME SEX PT STATUS ACCOUNT NUMBER JOSÉ MIGUEL LARSEN REG REF [id number] ORDERING PHYSICIAN LOCATION MEDICAL RECORD NO. Jasmin [facility] [id number] ATTENDING PHYSICIAN DATE OF DATE OF EXAM/TIME Doctor Provided,No Family 1990 04[birth year]/211447 TYPE / EXAM US OB Re-eval size or organs REASON FOR EXAM GROWTH, UTERINE SIZE DATE DISCREPANCY CLINICAL HISTORY: [facility] GROWTH, UTERINE SIZE DATE DISCREPANCY COMPARISON: No comparison study. FINDINGS: Real-time scanning through the gravid uterus demonstrates a viable single intrauterine gestation carlos cephalic lie. Placenta is anterior grade 2without evidence of placenta previa. heart rate is recorded at 137bpm. Amniotic fluid is subjectively normal. Maximum vertical pocket is 7.5cm's in depth. ANITA is normal at 24.3 cm. Closed cervical length is 4.7 cm's, viewed transabdominally. Biometry chart: BPD 9.2 cm's, 37 weeks 3 days Head to compress 33.1 cm's, 37 weeks 5 days Abdominal scars 34.4 cm's, 38 weeks 2 days Femur length 7.4 cm's, 37 weeks 5 days Cephalic index normal 79 HC/AC ratio normal 1.0 Estimated weight 3362 g, 7 lbs. 7 oz., 70th percentile IMPRESSION: Single living intrauterine gestation at 37 weeks 6day by today's composite sonographic criteria. CODY by today's sonography May 04, 2021. Expected gestational age estimate based on prior sonography 37 weeks 4 days. CODY by prior sonography May 06, 2021. Appropriate interval growth. Amniotic Fluid Volume: cm Maximal Vertical Pocket: cm CODY based on first ultrasound: . Average ultrasound age today: weeks days with CODY of . This demonstrates Normal interval growth. Cervix: . Measurements BPD: cm weeks days HC: cm weeks days AC: cm weeks days FL: cm weeks days IMPRESSION: 1. Single live intrauterine with heart rate of bpm. 2. Estimated Weight: g +/- g. Reported By Lisandro Laughlin MD on 04/19/21 1503 Signed By Lisandro Laughlin MD on 04/19/21 1507 Date Time CC: Lisandro Laughlin M.D.; No Family PHYS Provided Techn: TABSA Trans Dt/Tm: Trans by: DT Prt Dt/Tm: 0015: Total DLP = 0.00 mGy-cm [id number]: Total Radiation Dose = 0.0000 mSv Lifetime Dose: 0 mSv Name Value Range Interpretation Code Description Data Marie rce(s) Supporting Document(s) ID Date Data Source [id number] 02/15/2021 12:24:[address] [facility] LOAD?: 50 @02/15/21 1205: MANUAL DIFF added. RFLXG = DIFF. @02/15/21 1205: MANUAL DIFF added. RFLXG = DIFF. Name Value Range Interpretation Code Description Data Marie rce(s) Supporting Document(s) Glucose [Mass/volume] in Serum or Plasma --1 hour post 50 g glucose PO 106 mg/dL N [facility] l A 1 hour Glucose Tolerance Test f or Gestational Diabetes based on a 50 gm load:The 1-hour glucose level should be less than 140 mg/dl ID Date Data Source [id number] 02/15/2021 12:26:[address] [facility] LOAD?: 50 @02/15/21 1205: MANUAL DIFF added. RFLXG = DIFF. @02/15/21 1205: MANUAL DIFF added. RFLXG = DIFF. Name Value Range Interpretation Code Description Data Marie rce(s) Supporting Document(s) Leukocytes [#/volume] in Blood by Automated count 15.2 10*3/uL 4.45-10.71 Above high normal [facility] Erythrocytes [#/volume] in Blood by Automated count 3.65 10*6/uL 4.20-5.40 Below low normal [facility] Hemoglobin [Moles/volume] in Blood 11.5 g/dL 10.7-15.4 N [facility] Hematocrit [Volume Fraction] of Blood by Automated count 33.7 % 37-47 Below low normal [facility] Erythrocyte mean corpuscular volume [Ent itic volume] in Cord blood by Automated count 92 fL 80-96 N [facility] ital Erythrocyte mean corpuscular hemoglobin [Entitic mass] by Au tomated count 32 pg 27-31 Above high normal [facility] Erythrocyte mean corpuscular hemoglobin concentration [Mass/volume] in Cord blood 34 g/dL 33-37 N [facility] ital Erythrocyte distribution width [Entitic volume] by Automated count 13 % 11-15 N [facility] Platelets [#/volume] in Blood by Automated count 176 10*3/uL 130-472 N [facility] [facility] Plate[facility] mean volume [Entitic volume] in Blood 11.0 fL 9.1-13.1 N [facility] Neutrophils/100 leukocytes in Blood by Automated count 73.8 % 41- 77 N [facility] Neutrophils [#/volume] in Blood by Automated count 11.2 U 1.7-7.6 Above high normal [facility] Lymphocytes/100 leukocytes in Blood by Automated count 14.2 % 14- 46 N [facility] Lymphocytes [#/volume] in Blood by Automated count 2.2 U 0.6-4.6 N [facility] Monocytes/100 leukocytes in Blood by Automated count 5.8 % 4-12 N [facility] Monocytes [#/volume] in Blood by Automated count 0.9 U 0.2-1.2 N [facility] Eosinophils/100 leukocytes in Blood by Automated count 1.0 % 0-7 N [facility] Eosinophils [#/volume] in Blood by Automated count 0.2 U 0.0-0.5 N [facility] Basophils/100 leukocytes in Blood by Automated count 0.7 % 0.4-1 .3 N [facility] Basophils [#/volume] in Blood by Automated count 0.1 U 0.0-0.2 N [facility] NUCLEATED RED BLOOD CELL 0 % [facility] NUCLEATED RED BLOOD CELL# 0 U [facility] Immature granulocytes [Presence] in Blood by Automated count 0-2 Above high normal [facility] Immature granulocytes [#/volume] in Blood by Automated count 0.7 U 0-0.1 Above high normal [facility] Manual Differential panel - Blood Manual Diff Added [facility] ID Date Data Source [id number] 02/15/2021 12:26:00 PM EDT [facility] LOAD?: 50 @02/15/21 1205: MANUAL DIFF added. RFLXG = DIFF. @02/15/21 1205: MANUAL DIFF added. RFLXG = DIFF. Name Value Range Interpretation Code Description Data Marie rce(s) Supporting Document(s) Cells counted [#] 100 [facility] Neutrophils [#/volume] in Blood by Manual count 74 % 41-77 N [facility] Lymphocytes [#/volume] in Blood by Manual count 20 % 14-46 N [facility] Monocytes [#/volume] in Blood by Manual count 4 % 4-12 N [facility] Eosinophils [#/volume] in Blood by Manual count 1 % 0-7 N [facility] Basophils [#/volume] in Blood by Manual count 1 % 0-2 N [facility] Platelets [#/volume] in Blood by Estimate APPEARS NORMAL NORMAL [facility] Morphology [Interpretation] in Blood Narrative APPEARS NORMAL NORMAL [facility] ID Date Data Source [id number] 07/17/2020 11:11:00 AM EST [facility] ([facility]) Name Value Range Interpretation Code Description Data Marie rce(s) Supporting Document(s) BinaxNow Negative N/A BinaxNow PANHANDLE ([facility]) Note: Responsible Observer: KM ID Date Data Source [id number] 07/16/2020 12:00:00 AM EST [facility] Name Value Range Interpretation Code Description Data Marie rce(s) Supporting Document(s) SARS-CoV2 Rapid Antigen Negative [facility] This lab was ordered by [facility] and reported by [facility]. Procedure Social History No Information Vital Signs ID Date Data Source UNK Name Value Range Interpretation Code Description Data Source(s) Body weight 161.6 [lb_av] 161.6 [lb_av] eCW1 ([facility]) Body weight 73.3 kg 73.3 kg eCW1 ([facility]) Body height 63 [in_i] 63 [in_i] eCW1 ([facility]) Body mass index (BMI) [Ratio] 28.626 kg/m2 28.6 26 kg/m2 eCW1 ([facility]) Systolic blood pressure 106 mm[Hg] 106 mm[Hg] e CW1 ([facility]) Diastolic blood pressure 60 mm[Hg] 60 mm[Hg] eCW1 ([facility]) Systolic blood pressure 104 mm[Hg] 104 mm[Hg] e CW1 ([facility]) Diastolic blood pressure 58 mm[Hg] 58 mm[Hg] eCW1 ([facility]) Body weight 156.2 [lb_av] 156.2 [lb_av] eCW1 ([facility]) Body weight 70.85 kg 70.85 kg eCW1 ([facility]) Body height 63 [in_i] 63 [in_i] eCW1 ([facility]) Body mass index (BMI) [Ratio] 27.67 kg/m2 27.67 kg/m2 eCW1 ([facility]) Body weight 141.6 [lb_av] 141.6 [lb_av] eCW1 ([facility]) Body height 63 [in_i] 63 [in_i] eCW1 ([facility]) Body mass index (BMI) [Ratio] 25.08 kg/m2 25.08 kg/m2 eCW1 ([facility]) Systolic blood pressure 92 mm[Hg] 92 mm[Hg] e CW1 ([facility]) Diastolic blood pressure 54 mm[Hg] 54 mm[Hg] eCW1 ([facility]) Body weight 135.2 [lb_av] 135.2 [lb_av] eCW1 ([facility]) Body height 63 [in_i] 63 [in_i] eCW1 ([facility]) Body mass index (BMI) [Ratio] 23.95 kg/m2 23.95 kg/m2 eCW1 ([facility]) Systolic blood pressure 100 mm[Hg] 100 mm[Hg] e CW1 ([facility]) Diastolic blood pressure 60 mm[Hg] 60 mm[Hg] eCW1 ([facility]) Body weight 127.2 [lb_av] 127.2 [lb_av] eCW1 ([facility]) Body height 63 [in_i] 63 [in_i] eCW1 ([facility]) Body mass index (BMI) [Ratio] 22.532 kg/m2 22.5 32 kg/m2 eCW1 ([facility]) Systolic blood pressure 96 mm[Hg] 96 mm[Hg] e CW1 ([facility]) Diastolic blood pressure 54 mm[Hg] 54 mm[Hg] eCW1 ([facility]) Body weight 125 [lb_av] 125 [lb_av] eCW1 ([facility]) Body weight 56.7 kg 56.7 kg eCW1 ([facility]) Body height 63 [in_i] 63 [in_i] eCW1 ([facility]) Body mass index (BMI) [Ratio] 22.143 kg/m2 22.1 43 kg/m2 eCW1 ([facility]) Systolic blood pressure 98 mm[Hg] 98 mm[Hg] e CW1 ([facility]) Diastolic blood pressure 58 mm[Hg] 58 mm[Hg] eCW1 ([facility])
--- OUTSIDE RECORDS SUMMARY | 2021-04-30 04:58 | CCD ---
Author Author [facility] Organization [facility] Address [address] [place] [address] Phone Care Team Providers Care Coding Auditor Name Role Phone Aretha DALLAS, Jorge Paris PP [phone] Reason for Referral No Reason for Referral Recorded Problems Includes: Active, inactive, and resolved ProblemsNo Problems Recorded Plan of Treatment No Plan of Treatment Recorded Assessments Includes: Assessments for all patient encounters Findings Encounter Date Assessment of a PPD showed 0 mm induration KJL nursin g visit with Jorge Carias MD 03/16/2021 Instructions Instructions not supported for this document typeNo Instructions Recorded Medical Equipment - Implanted Devices Includes: Current and historical DevicesNo Medical Equipment Recorded Medications Includes: Current and historical MedicationsNo Medications Recorded Medications Administered Includes: Administered Medications in patient's chartNo Administered Medications Recorded Vital Signs Includes: Vital Signs from 03/16/2020 through 03/16/2021No Vital Signs Recorded For Specified Dates Results Includes: Results from 03/16/2020 through 03/16/2021 [facility] Ordered by Yarelis Crowell MD on 07/16/[address] [place] [address], [address] Collected: 07/17/2020 Reported: 07/17/2020 11:12 tel :[phone] ext. [phone] BinaxNow Negative N/A (Negative) None Note: Responsible Observer: KM Reviewed by Yarelis Crowell MD on 07/21/2020; All test results are final unless otherwise noted. History of Present Illness History of Present Illness not supported for this document typeNo History of Present Illness Recorded Social History No Social History Recorded - Smoking Status Unknown Procedures and Surgical History Includes: Procedures from 03/16/2020 through 03/16/2021 Procedures Code Diagnosis Performing Provider Service Location Service Date no charge procedure [place] Encounter for screening for respiratory tuberculosis Jorge Carias MD [facility], [facility] 03/16/2021 PPD 40475 Encounter for screening for resp iratory tuberculosis Eloise Fam [facility] 03/14/2021 FLUZONE/ multi-dose ( 6mos -older) 03955 Encounter for immunization Jorge Carias MD [facility], [facility] 04/27/2020 ADMINISTRATION 1-IMMUNIZATION(adult) 51905 Encounter f or immunization Jorge Carias MD [facility] 04/27/2020 Medical History Includes: Medical History in patient's chartNo Medical History Recorded Family History Includes: Family History in patient's chartNo Family History Recorded Review of Systems Review of Systems not supported for this document typeNo Review of Systems Recorded Mental Status Mental Status not supported for this document typeNo Mental Status Recorded Functional Status Functional Status not supported for this document typeNo Functional Status Recorded Physical Exam Physical Exam not supported for this document typeNo Physical Exam Recorded Immunizations Includes: Immunizations in patient's chart Vaccine Dose # Date Site Reaction(s) Status Source Influenza, seasonal, injectable 1 05/04/2018 Compl ete (Reported) Patient Influenza, seasonal, injectable 2 07/05/2019 Left Deltoid Complete (Administered) [facility] Influenza, seasonal, injectable 3 04/27/2020 Left Deltoid Complete (Administered) [facility] Allergies Includes: Active, inactive, and resolved AllergiesNo Allergies Recorded Encounters Includes: Encounters from 03/16/2020 through 03/16/2021 Encounter Provider Location Date Check-In Time Check-Out Time D iagnosis nursing visit [facility] 03/16/2021 3:55PM 3:59PM Assessment of Tuberc ulosis Ppd Induration ___(mm) nursing visit Eloise Fam [facility], [facility] 03/14/2021 4:49PM 4:49PM [Patient Encounter] Yarelis Crowell MD 07/16/2020 9:32AM 04/27/2020 11:59PM Flu Shot Adult Jorge Carias MD [facility] julian [facility] 04/27/2020 7:46AM 7:56AM Insurance Includes: Active Insurance Policies Plan Name Member ID Group # Subscriber Relationship Effective Da dominga 1 - [employer] [facility]- [id number] Jania Goodson MD Self 12/21/2017 - Unknown Advance Directives Includes: Current Advance DirectivesNo Advance Directives Recorded Health Concerns Includes: Active Health ConcernsNo Active Health Concerns Recorded Goals Includes: Active GoalsNo Active Goals Recorded Interventions Includes: Interventions for active GoalsNo Interventions Recorded Evaluations & Outcomes Includes: Evaluations & Outcomes for active GoalsNo Outcomes Recorded
--- OUTSIDE RECORDS SUMMARY | 2021-04-30 04:58 | CCD ---
Author Author [facility] Organization [facility] Address [address] [place] [address] Phone Care Team Providers Care Transportation Solutions Manager Name Role Phone Aretha DALLAS, Jorge Paris PP [phone] Reason for Referral No Reason [...] Recorded Vital Signs Includes: Vital Signs from 03/21/2020 through 03/21/2021No Vital Signs Recorded For Specified Dates Results Includes: Results from 03/21/2020 through 03/21/2021 [facility] In-house Laboratory Ordered by Yarelis Crowell MD on 07/16/2020 [address] [place], [address] Collected: 07/17/2020 Reported: 07/17/2020 11:12 tel :[phone] ext. [phone] BinaxNow Negative N/A (Negative) None Note: Responsible Observer: KM Reviewed by Yarelis Crowell MD on 07/21/2020; All test results are final unless otherwise noted. History of Present Illness History of Present Illness not supported for this document typeNo History of Present Illness Recorded Social History No Social History Recorded - Smoking Status Unknown Procedures and Surgical History Includes: Procedures from 03/21/2020 through 03/21/2021 Procedures Code Diagnosis Performing Provider Service Location Service Date no charge procedure [place] Encounter for screening for respiratory tuberculosis Jorge Carias MD [facility], [facility] 03/16/2021 PPD 00062 Encounter for screening for resp iratory tuberculosis Eloise Fam [facility], [facility] 03/14/2021 FLUZONE/ multi-dose ( 6mos -older) 72189 Encounter for immunization Jorge Carias MD [facility], [facility] 04/27/2020 ADMINISTRATION 1-IMMUNIZATION(adult) 68210 Encounter f or immunization Jorge Carias MD [facility], [facility] 04/27/2020 Medical History Includes: Medical History in [...] injectable 2 07/05/2019 Left Deltoid Complete (Administered) [facility] Influenza, seasonal, injectable 3 04/27/2020 Left Deltoid Complete (Administered) [facility] Influenza, seasonal, injectable 4 03/21/2021 Left Deltoid Complete (Administered) [facility] Allergies Includes: Active, inactive, and resolved AllergiesNo Allergies Recorded Encounters Includes: Encounters from 03/21/2020 through 03/21/2021 Encounter Provider Location Date Check-In Time Check-Out Time D iagnosis nursing visit Jorge C[facility] MD [facility], [facility] 03/21/2021 12:10PM 12:10PM [facility] 03/16/2021 3:55PM 3:59PM Assessment of Tuberc ulosis Ppd Induration ___(mm) nursing visit Eloise Fam [facility], [facility] 03/14/2021 4:49PM 4:49PM [Patient Encounter] Yarelis Crowell MD 07/16/2020 9:32AM 04/27/2020 11:59PM Flu Shot Adult Jorge C[facility] MD [facility], [facility] 04/27/2020 7:46AM 7:56AM Insurance Includes: Active Insurance Policies Plan Name Member ID Group # Subscriber Relationship Effective Da dominga 1 - [employer] [facility]- [id number] Jania Goodson MD Self 12/21/2017 - Unknown Advance Directives Includes: Current Advance DirectivesNo Advance Directives Recorded Health Concerns Includes: Active Health ConcernsNo Active Health Concerns Recorded Goals Includes: Active GoalsNo Active Goals Recorded Interventions Includes: Interventions for active GoalsNo Interventions Recorded Evaluations & Outcomes Includes: Evaluations & Outcomes for active GoalsNo Outcomes Recorded
--- OUTSIDE RECORDS SUMMARY | 2021-04-30 04:58 | CCD ---
Author Author [facility] Organization [facility] Address Unknown Phone Unavailable Care Team Providers Care Bleach Tester Name Role Phone Jasmin Somers Unavailable PROBLEMS Type Condition ICD9-CM Code [id number] Code Onset Dates Condition S tatus W/U Status Risk SNOMED Code Notes Problem Depression F32.9 Active confirmed 81787229 Problem Supervision of other normal Z34.80 Ac tive confirm [id number] ALLERGIES Allergen (clinical drug ingredient) Drug/Non Drug Allergy do cumented on EMR Reaction Allergy Type Onset Date Status penicillin V Penicillin hives Drug Allergy Active ENCOUNTERS from 1989 to 2021-04-13 Encounter Location Date Provider Diagnosis [facility] [address] [place] [address] [place] [address] Mar, Jasmin Ailyngerber 36 weeks gestatio n of Z3A.36 and Maternal care due to low transverse uterine scar from previous delivery O34.211 IMMUNIZATIONS No Information SOCIAL HISTORY Sex Assigned At : Social History Observation Description Sex Assigned At Unknown Education: Question Answer Notes Level of Education: Doctorate Alcohol Screening: Question Answer Notes Did you have a drink containing alcohol in the past year? No Points 0 Interpretation Negative REASON FOR REFERRAL No Information VITAL SIGNS Weight 161.6 lbs Mar, Weight-kg 73.3 kg Mar, Height 63 in Mar, BMI 28.626 kg/m2 Mar, Blood pressure systolic 106 mm Hg Mar, Blood pressure diastolic 60 mm Hg Mar, MEDICATIONS Medication SIG (Take, Route, Frequency, Duration) Notes Start Da te End Date Status CHESTER 3-0.02 MG 1 tablet Orally Once a day Mar, Not-Taking Zoloft 50 MG 1 tablet Orally Once a day for 90 day(s) 20 M 2019 Not-Taking 28-0.8 MG 1 tablet Orally Once a day Active PROCEDURES No Information RESULTS No Results REASON FOR VISIT 2 wk pn MEDICAL (GENERAL) HISTORY Type Description Date Surgical History LEEP Hospitalization History childbirth Goals Section No Information Health Concerns No Information MEDICAL EQUIPMENT No Information MENTAL STATUS No Information FUNCTIONAL STATUS No Information ASSESSMENTS Encounter Date Diagnosis Assessment Notes Treatment Notes Treatm ent Clinical Notes Mar, 36 weeks gestation of (ICD-10 - Z3A.36 ) Mar, Maternal care due to low tra nsverse uterine scar from previous delivery (ICD-10 - O34.211) PLAN OF TREATMENT Treatment Notes Test Name Order Date GROUP B STREP CULTURE 2021-04-12 Next Appt Details 1 Week Reason:- Routine follow up Provider Name:Jasmin Somers, 2021-04-19 09:00:00 AM, [address] [facility] [facility], , [place], [address], Follow Up:1 Week- Routine follow up Insurance Providers Payer Name Payer Address Payer Phone Insured Name Patient Relati onship to Insured Coverage Start Date Coverage End Date BCBS [place] MARCEL[place] PPO [phone] [facility] [employer] [place] [address] JOSÉ MIGUEL LARSEN
--- OUTSIDE RECORDS SUMMARY | 2021-04-30 04:58 | CCD ---
Author Author [facility] Organization [facility] Address Unknown Phone Unavailable Care Team Providers Care Internal Medicine Physician Assistant Name Role Phone Jasmin Somers Unavailable PROBLEMS Type Condition ICD9-CM Code [id number] Code Onset Dates Condition S tatus W/U Status Risk SNOMED Code Notes Problem Depression F32.9 Active confirmed [id number] Problem Supervision of other normal Z34.80 Ac tive confirm [id number] ALLERGIES Allergen (clinical drug ingredient) Drug/Non Drug Allergy do cumented on EMR Reaction Allergy Type Onset Date Status penicillin V Penicillin hives Drug Allergy Active ENCOUNTERS from 1989 to 2021-04-13 Encounter Location Date Provider Diagnosis [facility] [address] [place] [address] [place] [address] Mar, Jasmin Somers IMMUNIZATIONS No Information SOCIAL HISTORY Sex Assigned [...] Information RESULTS No Results REASON FOR VISIT appt MEDICAL (GENERAL) HISTORY Type Description Date Surgical History LEEP Hospitalization History childbirth Goals Section No Information Health Concerns No Information MEDICAL EQUIPMENT No Information MENTAL STATUS No Information FUNCTIONAL STATUS No Information ASSESSMENTS No Information PLAN OF TREATMENT Next Appt Details Provider Name:Jasmin Somers, 2021-04-19 09:00:00 AM, [address] [facility], , [place], [address], Insurance Providers Payer Name Payer Address Payer Phone Insured Name Patient Relati onship to Insured Coverage Start Date Coverage End Date BCBS [place] MARCELA PPO [phone] [facility] [employer] [place] [address] JOSÉ MIGUEL LARSEN self
--- OUTSIDE RECORDS SUMMARY | 2021-04-30 04:58 | CCD ---
Author Author [facility] Organization [facility] Address Unknown Phone Unavailable Care Team Providers Care Senior Water/Wastewater Engineer Name Role Phone Ashley Delacruz Unavailable PROBLEMS Type Condition ICD9-CM Code [id number] Code Onset Dates Condition S tatus W/U Status Risk SNOMED Code Notes Problem Depression F32.9 Active confirmed [id number] Problem Supervision of other normal Z34.80 Ac tive confirm [id number] ALLERGIES Allergen (clinical drug ingredient) Drug/Non Drug Allergy do cumented on EMR Reaction Allergy Type Onset Date Status PCN hives Non Drug Allergy Active ENCOUNTERS from 1989 to 2021-02-02 Encounter Location Date Provider Diagnosis [facility] [address] [place] [address] [place] [address] Jan, Ashley Delacruz 26 weeks gestation o f Z3A.26 and Maternal care due to low transverse [...] FOR REFERRAL No Information VITAL SIGNS Weight 141.6 lbs Jan, Height 63 in Jan, BMI 25.08 kg/m2 Jan, Blood pressure systolic 92 mm Hg Jan, Blood pressure diastolic 54 mm Hg Jan, MEDICATIONS Medication SIG (Take, Route, Frequency, Duration) Notes Start Da te End Date Status Zoloft 50 MG 1 tablet Orally Once a day for 90 day(s) 20 M 2019 Not-Taking CHESTER 3-0.02 MG 1 tablet Orally Once a day Mar, Not-Taking 28-0.8 MG 1 tablet Orally Once a day Active PROCEDURES No Information RESULTS No Results REASON FOR VISIT 4WK PN MEDICAL (GENERAL) HISTORY Type Description Date Surgical History LEEP Hospitalization History childbirth Goals Section No Information Health Concerns No Information MEDICAL EQUIPMENT No Information MENTAL STATUS No Information FUNCTIONAL STATUS No Information ASSESSMENTS Encounter Date Diagnosis Assessment Notes Treatment Notes Treatm ent Clinical Notes Jan, 26 weeks gestation of (ICD-10 - Z3A.26 ) Jan, Maternal care due to low tra nsverse uterine scar from previous delivery (ICD-10 - O34.211) PLAN OF TREATMENT Next Appt Details 2 Weeks Reason:PN Provider Name:Bill Antonio, 11:20:00 AM, [address] [facility], , [place], [address], Follow Up:2 WeeksPN Insurance Providers Payer Name Payer Address Payer Phone Insured Name Patient Relati onship to Insured Coverage Start Date Coverage End Date BCBS [place] [employer] PPO [phone] [facility] [place] [address] JOSÉ MIGUEL LARSEN
[2021-04-30] MEDS ORDERED: TUMS500C PO (05:05)
[2021-04-30] MEDS ORDERED: HOME MED LIST COMPLETE! XX SCH (05:10)
[2021-04-30] MEDS ORDERED: ceFAZolin SOD 2 GM in IV 1 EA IV ONE (05:30)
[2021-04-30] MEDS ORDERED: BICITRA 30ML SOLN UDC PO ONE (05:30)
[2021-04-30] MEDS ORDERED: LR 1,000 ML IV ONE (05:30)
[2021-04-30 05:47] LABS: HEMATOCRIT 37.2 % (36.0-47.0); HEMOGLOBIN 12.7 g/dl (12.0-15.5); MEAN CORPUSCULAR HEMOGLOBIN 31.2 pg (27.0-33.0); MEAN CORPUSCULAR HGB CONC 34.1 g/dl (32.0-36.5); MEAN CORPUSCULAR VOLUME 91.4 fl (80.0-96.0); PLATELET COUNT, AUTOMATED 152 10^3/uL (150-450); RED BLOOD COUNT 4.07 10^6/uL (4.00-5.40); WHITE BLOOD COUNT 11.1 10^3/uL (4.0-10.0)
[2021-04-30] MEDS ORDERED: LR 1,000 ML IV SCH (06:30)
[2021-04-30] MEDS ORDERED: ePHEDrine SULFATE 25 MG/5 ML(5MG/ML) SYRINGE As Ordered ONE (07:23)
[2021-04-30] MEDS ORDERED: PHENYLephrine 500MCG 5ML (100MCG/ML) SYRINGE As Ordered ONE (07:23)
[2021-04-30] MEDS ORDERED: OXYTOCIN 30 UNITS IN 0.9% NaCl 500ML IV BAG (J2590) As Ordered ONE ×2 (07:24→09:06)
[2021-04-30] MEDS ORDERED: MORPHINE PRES-FREE INJ 10 MG/10 ML VIAL (J2274) As Ordered ONE (07:24)
[2021-04-30] MEDS ORDERED: METOCLOPRAMIDE INJ 10MG/2ML VIAL (J2765 PER 1) IV PRN (07:40)
[2021-04-30] MEDS ORDERED: diphenhydrAMINE 50MG/ML VIAL (J1200) IV PRN (07:40)
[2021-04-30] MEDS ORDERED: ONDANSETRON 4MG/2ML VIAL IV PRN ×3 (07:40→09:05)
[2021-04-30] MEDS ORDERED: NALOXONE INJ 0.4MG/1ML VIAL (J2310 PER 1MG) IV PRN ×2 (07:40)
[2021-04-30] MEDS ORDERED: NALBUPHINE HCL 10 MG/ML AMP (J2300) IV PRN ×2 (07:40→09:05)
[2021-04-30] MEDS ORDERED: GLYCOPYRROLATE INJ 0.2 MG/ML 2 ML VIAL As Ordered ONE (07:46)
[2021-04-30] MEDS ORDERED: ONDANSETRON 4MG/2ML VIAL As Ordered ONE (07:52)
[2021-04-30] MEDS ORDERED: METOCLOPRAMIDE INJ 10MG/2ML VIAL (J2765 PER 1) As Ordered ONE (07:52)
[2021-04-30] MEDS ORDERED: KETOROLAC 60MG 2ML VIAL As Ordered ONE (08:16)
[2021-04-30] MEDS ORDERED: IBUPROFEN 600MG TAB PO PRN (09:00)
[2021-04-30] MEDS ORDERED: IBUPROFEN 800 MG TAB PO PRN (09:00)
[2021-04-30] MEDS ORDERED: SIMETHICONE 80MG CHEW TAB PO PRN (09:00)
[2021-04-30] MEDS ORDERED: OXYTOCIN DRIP 30 UNITS in IV 1 EA IV SCH (09:00)
[2021-04-30] MEDS ORDERED: MEASLES,MUMPS,RUBELLA VACCINE INJ (MMR-II) (90707) SC SCH (09:00)
[2021-04-30] MEDS ORDERED: PERCOCET 5MG/325MG TAB PO PRN ×2 (09:00)
[2021-04-30] MEDS: DOCUSATE SODIUM 100MG CAPSULE PO SCH ×2 (09:00→21:07)
[2021-04-30] MEDS ORDERED: RHOGAM 300 MCG (1500 IU) INJ (J2790) IM SCH (09:00)
[2021-04-30] MEDS: PRENATAL VITAMINS CHEWABLE TABLET PO SCH (09:00)
--- NOTE | 2021-04-30 09:03 | ROOPDOC ---
[facility] Report Of Operation Report of Operation DATE OF PROCEDURE: 04/30/2021 PREPROCEDURE DIAGNOSES: 39+1 weeks gestation, history of low transverse section, polyhydramnios, declining trial of labor POSTPROCEDURE DIAGNOSES: Same PROCEDURE: Elective repeat low transverse section SURGEON: Bill Antonio DO FACGIRISH SPEECH TEACHER: Beata Chu CNM (Essential role in retraction, extraction, and closure of all tissue layers) ANESTHESIA: Spinal w/ Duramorph ESTIMATED BLOOD LOSS: 500 mL. IV FLUIDS: 1500 mL LR URINE OUTPUT: 150 mL COMPLICATIONS: None. PREOPERATIVE ANTIBIOTICS: Ancef 2g IV x 1. COMPLICATIONS: none DATA: Apgars 9 and 9. Birthweight 3620 g, 8 lbs 0 oz. SPECIMENS: none PRIMARY INDICATION FOR : history of prior LTCS DESCRIPTION OF PROCEDURE: The patient was counseled on the risks, benefits, indications and alternatives of the procedure. Informed consent was obtained. She was taken to the operating room with IV running and placed on the operating table in the dorsal supine position with a leftward tilt. Regional anesthesia was found to be adequate. Sequential compression devices were placed on the lower extremities. A Pepe catheter was placed under sterile conditions. She was prepared and draped in normal sterile fashion. A time out was performed per protocol. Regional anesthesia was again found to be adequate. A Pfannenstiel skin incision was made with the 10 blade. The 10 blade was used to dissect down to the level of the rectus sheath fascia. The rectus sheath pressure was incised midline and this was extended bilaterally with Finney scissors , and manual stretch. The rectus muscle bellies were dissected off the rectus sheath fascia superiorly and inferiorly using both sharp and blunt dissection. The midline was identified. The peritoneum was identified and entered digitally. The peritoneal opening was extended with manual stretch. The Mobius retractor was placed. The vesicouterine peritoneum was dissected with Metzenbaum scissors to create the bladder flap. A low transverse uterine incision was made with the 10 blade. This was extended with manual stretch. The amniotic sac was punctured, and clear fluid was noted. The baby delivered through the hysterotomy without difficulty. The cord was doubly clamped and cut, and the baby was handed off to awaiting care. data shown above. The placenta was removed manually. The intrauterine cavity was cleared of all clot and debris. The hysterotomy was closed with 0 Vicryl in running locked fashion. This was reinforced with a second imbricating layer using 0 Monocryl in running fashion. Excellent hemostasis of the hysterotomy was noted. The pelvis was irrigated and the fluid suctioned. The Mobius retractor was removed. The peritoneum was closed with 3-0 Vicryl running fashion. The rectus muscle bellies were reapproximated with interrupted stitches using 3-0 Vicryl. The rectus muscles bellies were hemostatic. The rectus sheath fascia was closed with 0 Vicryl running fashion. The subcutaneous layer was irrigated and the fluid suctioned. Small bleeding vessels were cauterized with Bovie. Excellent hemostasis was noted. The subcutaneous layer was reapproximated with 3-0 Vicryl running fashion. Skin was closed with 3-0 Monocryl in subcuticular fashion. An Optifoam bandage was placed over the closed incision. Sponge, needle and instrument counts were correct per protocol throughout the procedure. The patient tolerated the entire procedure very well. She was transferred to the PACU in stable condition. DO MARVIN Young JONATHAN R. DO Apr 30, 2021 09:03
[2021-04-30] MEDS ORDERED: oxyCODONE 5MG TAB PO PRN (09:05)
[2021-04-30] MEDS ORDERED: PERCOCET PO (09:05)
[2021-04-30] MEDS ORDERED: fentaNYL 100 MCG/2 ML INJECTION (J3010) IV PRN (09:05)
[2021-04-30] MEDS ORDERED: MEPERIDINE INJ 25 MG/ML VIAL (J2175) IV PRN (09:05)
[2021-04-30] MEDS ORDERED: IBUP80TA PO (09:05)
[2021-04-30] MEDS ORDERED: HYDROMORPHONE HCL 0.5 MG/ 0.5 ML SYRINGE (J1170 PER 1) IV PRN (09:05)
[2021-04-30] MEDS ORDERED: COLA100C5 PO (09:05)
[2021-04-30] MEDS: KETOROLAC 30 MG/ML 1ML VIAL IV SCH ×2 (14:56→21:00)
[2021-05-01] VITALS (7 sets, daily range): BP systolic 95–128; BP diastolic 51–74
[2021-05-01] MEDS: KETOROLAC 30 MG/ML 1ML VIAL IV SCH (03:00)
[2021-05-01] MEDS: PRENATAL VITAMINS CHEWABLE TABLET PO SCH (07:57)
[2021-05-01] MEDS: DOCUSATE SODIUM 100MG CAPSULE PO SCH ×2 (07:58→21:13)
[2021-05-01] MEDS: ACETAMINOPHEN 500 MG TAB PO PRN ×3 (07:59→23:29)
[2021-05-01 08:00] LABS: HEMATOCRIT 28.9 % (36.0-47.0); MEAN CORPUSCULAR HEMOGLOBIN 31.2 pg (27.0-33.0); MEAN CORPUSCULAR HGB CONC 33.2 g/dl (32.0-36.5); MEAN CORPUSCULAR VOLUME 93.8 fl (80.0-96.0); PLATELET COUNT, AUTOMATED 107 10^3/uL (150-450); RED BLOOD COUNT 3.08 10^6/uL (4.00-5.40); WHITE BLOOD COUNT 10.4 10^3/uL (4.0-10.0)
[2021-05-01 08:41] LABS: HEMOGLOBIN 9.6 g/dl (12.0-15.5)
--- NOTE | 2021-05-01 09:00 | IPNPDOC ---
Progress Note Date of Service: May 01, 2021 Day#: 1 Progress Note SUBJECT: Patient is a 31-year-old G 2 P 2 status post uncomplicated repeat section at 38-5/7 weeks' doing well day #1. She has been ambulating, voiding spontaneously without issue and tolerating regular diet. Breast feeding without issue. Reports lochia is like a normal period. Patient is ambulating well. Reports some cramping, well controlled with medication. Voiding, passing flatus, and ambulating without difficulty. Patient is requesting discharge home today. OBJECTIVE: VITAL SIGNS: Within normal limits, afebrile. Alert and oriented times three. Breath sounds clear to auscultation. Heart rate: Regular rate and rhythm, no murmurs, rubs or gallops. Abdomen: Fundus firm at U-2. Soft, appropriately tender to palpation. Minimal to moderate lochia. ASSESSMENT: Patient is a 31-year-old status post uncomplicated repeat section after presenting to labor and delivery with contractions. Doing well on day 1. Vitals within normal limits, afebrile, hemodynamically stable with no evidence of infection. PLAN: 1. Potential Discharge to home this evening 2. Continue pain regimen. 3. Encourage breast feeding and ambulation. 4. Patient desires micronor for contraception 5. Incision check in two weeks 6. Discussed return precautions at length. VS, I&O, 24H, Fishbone Vital Signs/I&O Vital Signs Date Time Temp Pulse Resp B/P (MAP) Pulse Ox O2 Delivery O2 Flow Rate FiO2 05/01/21 06:13 98.6 78 18 107/55 (72) 98 04/30/21 19:45 Room Air I&O- Last 24 Hours up to 6 AM 05/01/21 06:00 Intake Total 5380 ml Output Total 2550 ml Balance 2830 ml Laboratory Data 24H LABS Laboratory Tests 2 05/01/21 07:05: Nucleated Red Blood Cells % (auto) 0.0 CBC/BMP Laboratory Tests 05/01/21 07:05 HUY HUMPHREY MD May 01, 2021 09:00
[2021-05-01] MEDS: IBUPROFEN 800 MG TAB PO SCH ×2 (12:01→18:37)
[2021-05-02 01:59] VITALS: BP 116/66
[2021-05-02] MEDS: IBUPROFEN 800 MG TAB PO SCH ×2 (02:31→10:26)
[2021-05-02 06:01] VITALS: BP 112/67
[2021-05-02] MEDS: DOCUSATE SODIUM 100MG CAPSULE PO SCH (07:44)
[2021-05-02] MEDS: PRENATAL VITAMINS CHEWABLE TABLET PO SCH (07:44)
[2021-05-02] MEDS: ACETAMINOPHEN 500 MG TAB PO PRN (07:46)
[2021-05-02 10:00] VITALS: BP 117/60
--- NOTE | 2021-05-02 10:44 | DSES ---
DISCHARGE SUMMARY DATE OF ADMISSION: 04/30/2021 DATE OF DISCHARGE: 05/02/2021 DISCHARGE DIAGNOSIS: Repeat section at term. Postoperative day two, stable condition. SURGEON: Bill Antonio DO BUSINESS CONTINUITY MANAGEMENT DIRECTOR: Arielle Chu CNM BRIEF HISTORY: Jania is a 31-year-old 2, para 2-0-0-2 now who underwent uncomplicated repeat section at term. Surgery was uncomplicated. She had an estimated blood loss of 500 mL. She delivered a live female weighing 3620 gm, 8 pounds. Apgars were 9 and 9. The patient reports that breast feeding is going well. She is tolerating p.o. fluids and a regular diet. She is voiding without difficulty and passing flatus. She has been ambulating and providing vero care, personal care and care to her without problems. Her pain has been well managed with by mouth pain medication and she is requesting discharge home today. OBJECTIVE: Temperature 97.6, pulse 68, respirations 16, BP 112/67. She is alert and oriented times three, smiling and talkative. Preoperative CBC on 04/30/2021 with a hemoglobin of 12.7, hematocrit 37.2, platelets 152. Postoperative CBC on 05/01/2021 with a hemoglobin of 9.6, hematocrit 28.9, and platelets 107. Her breasts are soft and nontender. Nipples are intact. Her fundus is firm at umbilicus. The incision with the Opti-Foam dressing in place. There is no new drainage. Perineum intact with lochia and rubra scant. Bilateral lower extremities negative for edema. PLAN: Discharge the patient home today. She is to follow up at [facility] for a two week incision check and an eight week visit. Medications for pain management have been e-prescribed by Dr. Bill Antonio to the patient's pharmacy, Percocet and ibuprofen. I reviewed discharge instructions that include breast care, incision care, vero-care, pelvic rest, and activity restrictions, lifting restrictions, danger signs to report to her care provider and access to her care provider. The patient and her have had all of their questions answered and request discharge home.
[2021-05-02] MEDS ORDERED: diphenhydrAMINE 50MG CAP PO ONE (10:45)
== END 2021-05-02 12:20 | disposition home or self-care (01) | DRG 540 ==
LOC: M LDI 04:54 → M OBS 10:42
PROVIDERS: ADMIT Obstetrics & Gynecology; ATTEND Obstetrics & Gynecology
PROC: 10D00Z1 Extraction of Products of Conception, Low, Open Approach (ICD-10-PCS; principal; 2021-04-30 07:30)
DX: O34.211 Maternal care for low transverse scar from previous cesarean delivery (principal); O40.3XX0 Polyhydramnios, third trimester, not applicable or unspecified; Z37.0 Single live birth; Z3A.39 39 weeks gestation of pregnancy

== ENCOUNTER → 2022-08-15 | Outpatient (REF) | payer BC ==
[~2022-08-15] MED LIST changes: +TUMS500C PO
== END ==
LOC: M SFHCWAGY 12:57
PROVIDERS: ATTEND Nurse Practitioner Family
DX: Z12.4 Encounter for screening for malignant neoplasm of cervix (principal); R87.610 Atypical squamous cells of undetermined significance on cytologic smear of cervix (ASC-US)
CPT/HCPCS: 87624; G0123